=== PATIENT | female | born 1955 | race Caucasian/White ===

== ENCOUNTER 2017-11-20 16:21 | Emergency (ER) | payer BC ==
[2017-11-20 19:03] VITALS: BP 169/79
--- NOTE | 2017-11-29 19:39 | ED ---
Pino Wick Stephanie, scribed for Morales Dubon MD on 11/20/17 at 1932 . Dizziness - HPI Summary HPI Summary: The pt is a 62 y/o F presenting to the ED with c/o dizziness that began on . Symptoms include vomiting. The pt states that changes in position do not alter the intensity of the dizziness. - History Of Current Complaint Chief Complaint: EDDizziness Stated Complaint: DIZZINESS, NAUSEA Time Seen by Provider: 11/20/17 19:23 Hx Obtained From: Patient Onset/Duration: Still Present, Suddenly Timing: Intermittent Episode Lasting Severity Currently: Mild Character: Dizzy Aggravating Factor(s): Nothing Alleviating Factor(s): Nothing Associated Signs And Symptoms: Positive: Nausea, Vomiting. Negative: Change In Medication - Allergies/Home Medications Allergies/Adverse Reactions: Allergies Allergy/AdvReac Type Severity Reaction Status Date / Time MS Peanut-containing Drug Allergy Severe Swelling Verified 03/02/15 16:48 Products of face, [Peanut-containing Drug lips, and Products] throat MS Peanut-derived Allergy Severe Swelling Verified 03/02/15 16:48 [Peanut-derived] of face, lips, and throat MS Shellfish Allergy Allergy Intermediate Unknown Verified 03/02/15 16:48 [Shellfish Allergy] Reaction Details MS Amoxicillin Allergy Unknown Nausea And Verified 03/02/15 16:48 [From Augmentin] Vomiting MS Clavulanic Acid Allergy Unknown Nausea And Verified 03/02/15 16:48 [From Augmentin] Vomiting MS Moxifloxacin [From Avelox] AdvReac Severe Nausea And Verified 03/02/15 16:48 Vomiting MS Sulfa Drugs [Sulfa Drugs] AdvReac Severe Hives Verified 03/02/15 16:48 peanuts Allergy Severe Swelling Uncoded 11/18/14 10:29 Of Face,Lips,& Throat nuts Allergy Intermediate Swelling Uncoded 11/18/14 10:29 Of Face,Lips,& Throat PMH/Surg Hx/FS Hx/Imm Hx Endocrine/Hematology History: Reports: Hx Anticoagulant Therapy - plavix history , not currently taking, Hx Diabetes Denies: Hx Thyroid Disease Cardiovascular History: Reports: Hx Angina, Hx Coronary Artery Disease, Hx Hypercholesterolemia, Hx Hypertension, Hx Myocardial Infarction, Other Cardiovascular Problems/Disorders - congenital defect of LAD Denies: Hx Pacemaker/ICD, Hx Valvular Heart Disease Respiratory History: Reports: Hx Asthma, Hx Sleep Apnea - current CPAP user, Other Respiratory Problems/Disorders - chronic rhinitis Denies: Hx Chronic Obstructive Pulmonary Disease (COPD) GI History: Reports: Hx Gastroesophageal Reflux Disease, Other GI Disorders - diverticulitis Denies: Hx Ulcer History: Denies: Hx Renal Disease Musculoskeletal History: Reports: Hx Arthritis - bilateral knees Sensory History: Reports: Hx Contacts or Glasses Opthamlomology History: Reports: Hx Contacts or Glasses Neurological History: Reports: Hx Headaches - sinus headaches, Hx Migraine Denies: Hx Dementia, Hx Seizures Psychiatric History: Reports: Other Psychiatric Issues/Disorders - OCD Denies: Hx Substance Abuse - Cancer History Cancer Type, Location and Year: Skin CA on back removed. Hx Chemotherapy: No Hx Radiation Therapy: No - Surgical History Surgery Procedure, Year, and Place: 04/2000 (left) carpal tunnel. 02/2001 ( right) carpal tunnel. 12/2002 hysterectomy fibroid tumor. Stent placement x 4 and angioplasty. 5 sinus surgeries Hx Anesthesia Reactions: No - Immunization History Date of Tetanus Vaccine: 2002 Date of Influenza Vaccine: 07/29 Infectious Disease History: No Infectious Disease History: Reports: Hx of Known/Suspected MRSA Denies: Hx Clostridium Difficile, Hx Hepatitis, Hx Human Immunodeficiency Virus (HIV), Hx Shingles, Hx Tuberculosis, Traveled Outside the [place] in Last 30 Days - Family History Known Family History: Positive: Diabetes - Social History Occupation: Employed Full-time Lives: With Family Alcohol Use: Occasionally Substance Use Type: Reports: None, Prescribed Smoking Status (MU): Never Smoked Tobacco Review of Systems Negative: Fever Positive: Vomiting Neurological: Other - dizziness All Other Systems Reviewed And Are Negative: Yes Physical Exam - Summary Physical Exam Summary: Appearance: Well-appearing, Well-nourished Skin: Warm, Dry, No rash Eyes: Normal, PERRL, EOMI, sclera anicteric ENT: cerumen in R ear. L ear clean and L TM nml. Positional vertigo on Katja Halpike maneuvers with latency and extinction on bilateral ears. Neck: Supple, nontender Respiratory: Clear to auscultation Cardiovascular: S1, S2, no murmur, no rub, no gallop Abdomen: Soft, nontender, no organomegaly Bowel sounds: Present Musculoskeletal: Normal, Strength/ROM Intact, no edema, pulses symmetrical Neurological: Normal, A&Ox3, cranial nerves II-XII WNL, follows commands, gait not tested, sensation intact to pin and light touch Psychiatric: affect normal, behavior appropriate, dressed appropriately, judgment intact Triage Information Reviewed: Yes Vital Signs On Initial Exam: Initial Vitals Temp Pulse Resp BP Pulse Ox 97.8 F 65 18 144/82 98 11/20/17 16:28 11/20/17 16:28 11/20/17 16:28 11/20/17 16:28 11/20/17 16:28 Vital Signs Reviewed: Yes Diagnostics - Vital Signs Vital Signs Temp Pulse Resp BP Pulse Ox 11/20/17 19:02 97.8 F 75 18 169/79 98 11/20/17 16:28 97.8 F 65 18 144/82 98 - Laboratory Lab Statement: Any lab studies that have been ordered have been reviewed, and results considered in the medical decision making process. Dizzy Course/Dx - Course Course Of Treatment: ED physician removed earwax from the pt's ears via irrigation. - Diagnoses Provider Diagnoses: Positional vertigo Discharge - Discharge Plan Condition: Stable Disposition: HOME Referrals: Linette Garcia MD [Primary Care Provider] - Additional Instructions: RETURN TO THE EMERGENCY DEPARTMENT FOR CHANGING OR WORSENING SYMPTOMS The documentation as recorded by the Pino segovia Stephanie accurately reflects the service I personally performed and the decisions made by me, Morales Dubon MD.
== END 2017-11-20 20:14 | disposition home or self-care (01) ==
LOC: ED 16:21
DX: H81.10 Benign paroxysmal vertigo, unspecified ear (principal); R11.2 Nausea with vomiting, unspecified; I25.119 Atherosclerotic heart disease of native coronary artery with unspecified angina pectoris; I25.2 Old myocardial infarction; I10 Essential (primary) hypertension; Z79.01 Long term (current) use of anticoagulants; E78.00 Pure hypercholesterolemia, unspecified; J45.909 Unspecified asthma, uncomplicated; K21.9 Gastro-esophageal reflux disease without esophagitis; Z88.2 Allergy status to sulfonamides; Z88.1 Allergy status to other antibiotic agents; Z91.018 Allergy to other foods; Z91.010 Allergy to peanuts; Z91.013 Allergy to seafood
CPT/HCPCS: 99282

== ENCOUNTER 2018-09-24 11:45 | Emergency (ER) | payer BC ==
[2018-09-24 12:06] VITALS: BP 139/70
[2018-09-24] MEDS ORDERED: Lidocaine 2% PF * 5 ML VIAL INJ ONE (13:01)
--- NOTE | 2018-09-24 13:02 | UC ---
Laceration HPI - HPI Summary HPI Summary: 63 yo female presents with laceration to left middle finger. 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 She bandaged the area and came to - History Of Current Complaint Chief Complaint: UCLaceration Stated Complaint: FINGER LAC Time Seen by Provider: 09/24/18 12:33 Hx Obtained From: Patient Laceration Location: Finger Mechanism Of Injury: Sharp Trauma Severity: Mild Pain Intensity: 2 Pain Scale Used: 0-10 Numeric - Allergies/Home Medications Allergies/Adverse Reactions: Allergies Allergy/AdvReac Type Severity Reaction Status Date / Time amoxicillin [From Augmentin] Allergy Nausea And Verified 09/24/18 12:07 Vomiting clavulanic acid Allergy Nausea And Verified 09/24/18 12:07 [From Augmentin] Vomiting moxifloxacin [From Avelox] Allergy Nausea And Verified 09/24/18 12:07 Vomiting shellfish derived Allergy Unknown Verified 09/24/18 12:07 Reaction Details Sulfa (Sulfonamide Allergy Hives Verified 09/24/18 12:07 Antibiotics) peanuts Allergy Severe Swelling Uncoded 11/18/14 10:29 Of Face,Lips,& Throat nuts Allergy Intermediate Swelling Uncoded 11/18/14 10:29 Of Face,Lips,& Throat PMH/Surg Hx/FS Hx/Imm Hx Endocrine History: Diabetes, Dyslipidemia Cardiovascular History: Hypertension Respiratory History: Asthma Other History Of: Anticoagulant Therapy - plavix history, not currently taking - Surgical History Surgical History: Yes Surgery Procedure, Year, and Place: 04/2000 (left) carpal tunnel. 02/2001 ( right) carpal tunnel. 12/2002 hysterectomy fibroid tumor. Stent placement x 4 and angioplasty. 5 sinus surgeries - Family History Known Family History: Positive: Diabetes - Social History Occupation: Employed Full-time Lives: With Family Alcohol Use: Occasionally Substance Use Type: None Smoking Status (MU): Never Smoked Tobacco - Immunization History Most Recent Tetanus Shot: within 10 years Review of Systems All Other Systems Reviewed And Are Negative: Yes Constitutional: Positive: Negative Skin: Positive: Other - Laceration left middle finger Respiratory: Positive: Negative Cardiovascular: Positive: Negative Neurovascular: Positive: Negative Neurological: Positive: Negative Psychological: Positive: Negative Physical Exam - Summary Physical Exam Summary: GENERAL: NAD. WDWN. No pain distress. SKIN: V shaped laceration at dorsal-radial aspect of left middle finger near the DIP. No tendon involvement. NECK: Supple. Nontender. No lymphadenopathy. CHEST: No accessory muscle use. Breathing comfortably and in no distress. CV: Pulses intact. Cap refill <2seconds MSK: Left middle finger: FROM at MCP, PIP, and DIP NEURO: Alert. PSYCH: Age appropriate behavior. Triage Information Reviewed: Yes Vital Signs: Initial Vital Signs Temp 97.5 F 09/24/18 11:59 Pulse 67 09/24/18 11:59 Resp 18 09/24/18 11:59 BP 139/70 09/24/18 11:59 Pulse Ox 100 09/24/18 11:59 Vital Signs Reviewed: Yes Laceration Repair - Laceration Repair 1 Description: Stellate Laceration Size After Repair: Length (cm) - 2.0 Modified For Repair: No Type Injection: Local Anesthesia Used: 2.0% Lido Irrigation With Pressure Irrigation Device: Yes Closure Material: Sutures - #5 Closure Method: Single Layer Suture Type: Prolene Laceration Course/Dx - Course/Dx Course Of Treatment: The procedure was explained to the pt and all questions were answered. A time out was performed, witnessed, and signed. The area was irrigated with 250mL sterile saline. 2mL of 2% lidocaine without epi was administered and good anesthetization was achieved. In the usual sterile fashion , FIVE prolene interrupted sutures were placed. The wound was bandaged with telfa and tubegauze. Pt tolerated procedure well. - Diagnosis Provider Diagnosis: Laceration of left middle finger Discharge - Sign-Out/Discharge Documenting (check all that apply): Patient Departure All imaging exams completed and their final reports reviewed: No Studies - Discharge Plan Condition: Stable Disposition: HOME Patient Education Materials: Care For Your Stitches (ED), Laceration (DC) Referrals: Linette Garcia MD [Primary Care Provider] - Additional Instructions: 1) Please keep the area bandaged, clean, dry, and intact for the next 24- 48hours. 2) If you develop a fever, colored or thick discharge, increased pain or swelling - please call your PCP or go to the ED. 3) Please return in 10-12 days to have your FIVE sutures removed. - Billing Disposition and Condition Condition: STABLE Disposition: Home
== END 2018-09-24 13:40 | disposition home or self-care (01) ==
LOC: UCEAST 11:45
DX: S61.213A Laceration without foreign body of left middle finger without damage to nail, initial encounter (principal); J45.909 Unspecified asthma, uncomplicated; E11.9 Type 2 diabetes mellitus without complications; I10 Essential (primary) hypertension; Z88.0 Allergy status to penicillin; Z88.1 Allergy status to other antibiotic agents; Z88.2 Allergy status to sulfonamides; Z91.018 Allergy to other foods; Z91.010 Allergy to peanuts; Z95.5 Presence of coronary angioplasty implant and graft; W45.8XXA Other foreign body or object entering through skin, initial encounter; Y92.9 Unspecified place or not applicable
CPT/HCPCS: 12001; 99212; G0463

== ENCOUNTER 2018-12-25 08:49 | Inpatient (IN) | payer BC ==
--- NOTE | 2018-12-25 10:03 | ED ---
HPI Chest Pain - HPI Summary HPI Summary: 63 year old female presents for evaluation of chest pain. Pt states pain first started last night while she was in bed and describes it as "heavy pressure". She states the pain was a 9/10 and it radiated to the left side of her neck and back. Pt also reports vomiting, diarrhea, diaphoresis, and fatigue with onset of her symptoms. She took 2 nitroglycerin tabs which improved her pain. Pt currently reports no chest pain and any of the symptoms she experienced last night other than fatigue. She denies SOB, palpitations, and fever. Pt has a personal history of 2 MIs occurred about 10 years. She states they were both in the same year. She also states that the pain she was feeling last night was similar to the pain she experienced during her first DE. Pt has occasional episodes of angina which she takes nitroglycerin for. She sees a peel oven tender, Dr. King, he regularly and her last follow up was 4-5 weeks ago. Pt also has a history of diabetes and hypertension. She is a non-smoker. - History of Current Complaint Chief Complaint: EDChestPainROMI Time Seen by Provider: 12/25/18 08:58 Hx Obtained From: Patient Timing: Intermittent, Lasting Minutes Initial Severity: Worse Since: Pain Intensity: 0 Pain Scale Used: 0-10 Numeric Chest Pain Location: Mid Sternal Chest Pain Radiates: Yes Chest Pain Radiates To:: Back, Neck Character: Dull/Aching Aggravating Factor(s): Nothing Alleviating Factor(s): NTG 123 - nitro x 2 Associated Signs and Symptoms: Positive: Chest Pain, Weakness, Diaphoresis, Nausea, Vomiting Related History: Similar Episode/Dx as: - previous DE x 2 - Risk Factors TAD Risk Factors: Hypertension AMI/ACS Risk Factors: Myocardial Infarction, Obesity, Nitroglycerine Use, Hypertension - Well - Additional Pertinent History Recent Stress Test: No - unknown 5+ years ago - Allergy/Home Medications Allergies/Adverse Reactions: Allergies Allergy/AdvReac Type Severity Reaction Status Date / Time amoxicillin [From Augmentin] Allergy Nausea And Verified 12/25/18 08:58 Vomiting clavulanic acid Allergy Nausea And Verified 12/25/18 08:58 [From Augmentin] Vomiting moxifloxacin [From Avelox] Allergy Nausea And Verified 12/25/18 08:58 Vomiting shellfish derived Allergy Unknown Verified 12/25/18 08:58 Reaction Details Sulfa (Sulfonamide Allergy Hives Verified 12/25/18 08:58 Antibiotics) peanuts Allergy Severe Swelling Uncoded 12/25/18 08:58 Of Face,Lips,& Throat nuts Allergy Intermediate Swelling Uncoded 12/25/18 08:58 Of Face,Lips,& Throat Home Medications: Home Medications Dulaglutide (NF) [Trulicity (NF)] 0.75 mg SUBCUT WEEKLY 12/25/18 [History Confirmed 12/25/18] FLUoxetine CAP* [PROzac CAP*] 20 mg PO DAILY 12/25/18 [History Confirmed ] PMH/Surg Hx/FS Hx/Imm Hx Previously Healthy: Yes - previous DE hx Endocrine/Hematology History: Reports: Hx Anticoagulant Therapy - plavix history , not currently taking, Hx Diabetes Denies: Hx Thyroid Disease Cardiovascular History: Reports: Hx Angina, Hx Coronary Artery Disease, Hx Hypercholesterolemia, Hx Hypertension, Hx Myocardial Infarction, Other Cardiovascular Problems/Disorders - congenital defect of LAD Denies: Hx Pacemaker/ICD, Hx Valvular Heart Disease Respiratory History: Reports: Hx Asthma, Hx Sleep Apnea - current CPAP user, Other Respiratory Problems/Disorders - chronic rhinitis Denies: Hx Chronic Obstructive Pulmonary Disease (COPD) GI History: Reports: Hx Gastroesophageal Reflux Disease, Other GI Disorders - diverticulitis Denies: Hx Ulcer History: Denies: Hx Renal Disease Musculoskeletal History: Reports: Hx Arthritis - bilateral knees Sensory History: Reports: Hx Contacts or Glasses Opthamlomology History: Reports: Hx Contacts or Glasses Neurological History: Reports: Hx Headaches - sinus headaches, Hx Migraine Denies: Hx Dementia, Hx Seizures Psychiatric History: Reports: Other Psychiatric Issues/Disorders - OCD Denies: Hx Substance Abuse - Cancer History Cancer Type, Location and Year: Skin CA on back removed. Hx Chemotherapy: No Hx Radiation Therapy: No - Surgical History Surgery Procedure, Year, and Place: 04/2000 (left) carpal tunnel. 02/2001 ( right) carpal tunnel. 12/2002 hysterectomy fibroid tumor. Stent placement x 4 and angioplasty. 5 sinus surgeries Hx Anesthesia Reactions: No - Immunization History Date of Tetanus Vaccine: 2002 Date of Influenza Vaccine: 07/29 Immunizations Up to Date: Yes Infectious Disease History: No Infectious Disease History: Reports: Hx of Known/Suspected MRSA - in her sinuses Denies: Hx Clostridium Difficile, Hx Hepatitis, Hx Human Immunodeficiency Virus (HIV), Hx Shingles, Hx Tuberculosis, Traveled Outside the [place] in Last 30 Days - Family History Known Family History: Positive: Diabetes - Social History Occupation: Employed Full-time Lives: With Family Alcohol Use: Occasionally Hx Substance Use: No Substance Use Type: Reports: None Hx Tobacco Use: No Smoking Status (MU): Never Smoked Tobacco Review of Systems Positive: Fatigue, Skin Diaphoresis. Negative: Fever Negative: Blurred Vision, Diplopia Positive: Chest Pain Negative: Shortness Of Breath, Cough Positive: Vomiting, Diarrhea. Negative: Abdominal Pain, Nausea Positive: Weakness. Negative: Paresthesia, Numbness, Syncope, Slurred Speech All Other Systems Reviewed And Are Negative: Yes Physical Exam Triage Information Reviewed: Yes Vital Signs On Initial Exam: Initial Vitals Temp Pulse Resp BP Pulse Ox 98 F 92 20 149/60 98 12/25/18 08:54 12/25/18 08:54 12/25/18 08:54 12/25/18 08:54 12/25/18 08:54 Vital Signs Reviewed: Yes Appearance: Positive: Well-Appearing, No Pain Distress, Well-Nourished Skin: Positive: Warm Head/Face: Positive: Normal Head/Face Inspection Eyes: Positive: EOMI, Conjunctiva Clear ENT: Positive: Normal ENT inspection Neck: Positive: Supple, Nontender Respiratory/Lung Sounds: Positive: Clear to Auscultation, Breath Sounds Present Cardiovascular: Positive: RRR, Pulses are Symmetrical in both Upper and Lower Extremities Abdomen Description: Positive: Nontender, Soft Musculoskeletal: Positive: Normal, Strength/ROM Intact Neurological: Positive: Sensory/Motor Intact, Alert, Oriented to Person Place, Time Diagnostics - Vital Signs Vital Signs Temp Pulse Resp BP Pulse Ox 12/25/18 09:27 82 18 136/73 98 12/25/18 09:00 88 23 98 12/25/18 08:57 85 15 149/60 96 12/25/18 08:54 98 F 89 20 149/60 98 - Laboratory Result Diagrams: 12/25/18 10:30 12/25/18 10:30 Lab Statement: Any lab studies that have been ordered have been reviewed, and results considered in the medical decision making process. Chest Pain Course/Dx - Course Course Of Treatment: During the course of treatment, the patient is evaluated for midsternal chest pressure radiating up into the left side of the neck, left arm and through to the back. History of DE 2, 10 years ago. Four Stent placements including LAD. Pain began at 3 AM including diaphoresis, nausea, vomiting, diarrhea. Symptoms have except for continuing fatigue. She states this is similar to her episodes of DE 10 years ago. She is currently asymptomatic. She is not given medications on arrival and vital signs are stable. Temp 98, pulse 92, respirations at 20, O2 sat 98% on room air and 149/ 60. Labs obtained, EKG obtained which was normal sinus rhythm. Chest x-ray obtained which shows no acute cardiopulmonary findings. Discussed case with hospitalist, Dr. Foote who agrees to accept patient for admission. JOSE MIGUEL score 3. Troponin 0.57. - Chest Pain Differential Diagnosis/HQI/PQRI: Acute DE, ACS, Angina, Chest Wall, Other: - viral syndrome, gastroenteritis - Diagnoses Provider Diagnoses: Angina at rest - Provider Notifications Discussed Care Of Patient With: Autumn Foote Instructed by Provider To: Admit As Inpatient - Critical Care Time Critical Care Time: 30-74 min Discharge - Sign-Out/Discharge Documenting (check all that apply): Patient Departure Patient Received Moderate/Deep Sedation with Procedure: No - Discharge Plan Condition: Fair Disposition: ADMITTED TO [facility] Referrals: Linette Garcia MD [Primary Care Provider] - - Billing Disposition and Condition Condition: FAIR Disposition: Admitted to [facility]
[2018-12-25 10:41] LABS: ABS Basophils 0 10^3/ul (0-0.2); ABS Eosinophils 0.1 10^3/ul (0-0.6); ABS Lymphocytes 0.9 10^3/ul (1.0-4.8); ABS Monocytes 0.7 10^3/ul (0-0.8); ABS Neutrophils 7.4 10^3/ul (1.5-7.7); ABS Nucleated RBC 0 10^3/ul; Eosinophil % 0.9 %; Hematocrit 40 % (33-41); Hemoglobin 13.5 g/dL (12.0-16.0); Lymphocyte % 9.5 %; Mean Corpuscular HGB Conc 34 g/dL (31-36); Mean Corpuscular Hemoglobin 32 pg (27-31); Mean Corpuscular Volume 93 fL (80-97); Mean Platelet Volume 8.6 fL (7.4-10.4); Nucleated Red Blood Cells % 0; Platelet Count 208 10^3/uL (150-450); Red Blood Count 4.28 10^6 /uL (3.70-4.87); Red Cell Distribution Width 13 % (10.5-15); White Blood Count 9.1 10^3/uL (3.5-10.8)
[2018-12-25 10:59] LABS: Influenza A Molecular NEGATIVE (Negative); Influenza B Molecular NEGATIVE (Negative)
[2018-12-25 11:03] LABS: ALT 19 U/L (7-52); AST 19 U/L (13-39); Albumin/Globulin Ratio 1.3 (1-3); Alkaline Phosphatase 66 U/L (34-104); Anion Gap 8 mmol/L (2-11); BUN/Creatinine Ratio 28.6 (8-20); Blood Urea Nitrogen 36 mg/dL (6-24); C Reactive Protein 48.62 mg/L (<8.01); CO2 Carbon Dioxide 23 mmol/L (22-32); Calcium 9.3 mg/dL (8.6-10.3); Chloride 104 mmol/L (101-111); EGFR African American 51.7 (>60); EGFR Non-African American 42.8 (>60); Glucose 147 mg/dL (70-100); Sodium 135 mmol/L (135-145)
[2018-12-25 11:09] LABS: Troponin I 0.57 ng/mL (<0.04)
[2018-12-25] MEDS ORDERED: Aspirin TAB* 325 MG PO ONE (11:18)
[2018-12-25] MEDS ORDERED: Aspirin 81 mg CHEW TAB* 81 MG TAB.CHEW ONE (11:21)
[2018-12-25] MEDS ORDERED: Aspirin 81 mg CHEW TAB* 81 MG TAB.CHEW PO ONE (11:22)
[2018-12-25] MEDS ORDERED: Acetaminophen TAB* 325 MG PO PRN (11:48)
[2018-12-25] MEDS ORDERED: Al Hydrox/Mg Hydrox/Simet LIQ* 30 ML UDC PO PRN (11:48)
[2018-12-25] MEDS: NS 0.9% 1000 ML** 2,000 ML IV ONE (12:03)
[2018-12-25] MEDS ORDERED: Nitroglycerin TAB 0.4 MG* 0.4 MG TAB SL PRN (12:05)
[2018-12-25] MEDS ORDERED: Albuterol 2.5 MG/3 ML NEB.SOL* (0.083%) INH PRN (12:05)
[2018-12-25] MEDS ORDERED: Levalbuterol HFA INHALER* 1 PUFF MDI INH PRN (12:05)
[2018-12-25] MEDS ORDERED: Dextrose 50% Syringe 50 ML* 25 GM/50 ML SYRINGE IV PUSH PRN (12:08)
[2018-12-25] MEDS ORDERED: Heparin DRIP 25,000 UNITS(*) 25,000 UNITS/500 ML BAG IV SCH (13:00)
--- NOTE | 2018-12-25 13:05 | HP ---
CC: Dr. Garcia; Dr. King; Dr. Gaines* HISTORY AND PHYSICAL: ADDENDUM: DATE OF ADMISSION: 12/25/18. PRIMARY CARE PROVIDER: Dr. Garcia. DIRECTOR OF SALES MARKETING: Dr. King. CONSULTING DIRECTOR OF SALES MARKETING: Dr. Gaines. The case was reviewed and discussed with TEJAS Jean-Baptiste. Mrs. 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 The patient states that around 3:00 in the morning, she woke up with severe retrosternal chest pain, described as a pressure radiating to the left side of her neck and back. This was associated with nausea, vomiting, diarrhea, diaphoresis, and weakness. She took 2 nitroglycerin tablets with improvement of the pain and she was actually able to go back to sleep and she came to the emergency room around 9 a.m. DIAGNOSTIC STUDIES/LAB DATA: Her labs were reviewed and her initial troponin is 0.57. Her EKG showed sinus rhythm with no acute ischemic changes. Her chest x-ray is not yet officially read, but on my preliminary review, I do not see any acute cardiopulmonary disease. IMPRESSION: The patient has a known ST elevation ME. She will be admitted to the telemetry floor. She will be treated with aspirin, heparin drip. She will be continued on her beta-cira and her statin. We will trend her troponin until peak and we will wait for the seasoning sprayer evaluation regarding further management and risk stratification. As per Dr. King's last note, the patient's last catheterization was in 2010 and at that time, she had a normal LAD with stents that were patent. She had 90 % ostial, 30% mid circumflex and the RCA stent was also patent. We will check lipid profile, hemoglobin A1c, and await further Cardiology recommendations. [id number] #: [id number] MTDD
[2018-12-25 13:33] LABS: Troponin I 0.81 ng/mL (<0.04)
[2018-12-25] MEDS ORDERED: Clopidogrel TAB* 300 MG PO ONE (14:07)
--- NOTE | 2018-12-25 14:10 | PN ---
Hospitalist Progress Note Date of Service: 12/25/18 HOSPITALIST ADDENDUM D/w Cardiology (Dr Gaines) - will load with Plavix 300mg now and continue 75mg/ daily. Also recommended changing beta cira from carverdilol to metoprolol tartrate with first dose now.
[2018-12-25] MEDS: Insulin LISPRO* 1 UNITS UNIT SUBCUT SCH ×2 (14:15→21:20)
[2018-12-25] MEDS: Heparin VIAL(*) 5000 UNITS/ML VIAL (FIVE THOUSAND) IV PRN ×2 (14:15→21:42)
--- NOTE | 2018-12-25 14:37 | HP ---
CC: Dr. Agata Garcia; Dr. Adi King* HISTORY AND PHYSICAL: DATE OF ADMISSION: 12/25/18 PROVIDER: TEJAS Jean-Baptiste. PRIMARY CARE PROVIDER: Dr. Agata Garcia. PRESS SETUP OPERATOR: Dr. Adi King. ATTENDING PHYSICIAN: Dr. Saul Galan* (dictated by TEJAS Jean-Baptiste) CHIEF COMPLAINT: Chest pain, overnight. HISTORY OF PRESENT ILLNESS: Carissa Aquino is a 63-year-old white female with past medical history of CAD, status post 2 stents; DM type 2; asthma and obesity , who presents to the emergency room today after experiencing chest pain overnight that did not resolve by this morning at 6 AM. Yesterday evening, the patient began experiencing sudden nausea at bedtime, approximately around 9 p.m. , this led to vomiting multiple times and diarrhea. During this, she started to develop chest pain which she noticed was radiating to her left shoulder and her neck. Additionally, the pain was radiating to her back. During this episode , she was frequently alternating between diaphoresis and chills. She mentions she did have [employer] for dinner and this does frequently cause her to have loose stools. She decided to take nitroglycerin and was waiting to see if the chest pain would go away. It did start to improve but then she fell sleep. She then woke up at 6:30 this morning and her chest pain was still not resolved , so she decided to report to the emergency department today by a private vehicle. She is chest pain free at time of evaluation today. She denies visual changes, headaches, dizziness, and shortness of breath now and during her episode of chest pain. She was not having abdominal pain leading up to this, but she was experiencing abdominal pain shortly after vomiting and diarrhea. She denies abdominal pain at time of evaluation. She does not believe there was blood in her vomit or stool. 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 She follows with Dr. King and had her last appointment in that office on . It is of note that she mentions today that she does approximately once per month or less have chest pain at rest that is relieved with nitroglycerin within 10 to 15 minutes. Additionally, the patient's notes that the patient frequently has leg cramps. The patient reports that these leg cramps occur at rest and immediately get better with movement. ED COURSE: The patient arrived via private vehicle to the emergency department where her vital signs were temperature of 98 degrees Fahrenheit, heart rate 92, respiratory rate 20, O2 sat 98% on room air, blood pressure 149/60. Of note, troponin was elevated to 0.57 and therefore, the hospitalist were asked to evaluate the patient for admission. PAST MEDICAL HISTORY: 1. CAD, status post 2 stents. 2. Diabetes mellitus type 2. 3. Obstructive sleep apnea, uses CPAP at home. 4. Asthma. 5. Osteoarthritis. 6. Seasonal allergic rhinitis. 7. Obesity. PAST SURGICAL HISTORY: 1. The patient reports multiple sinus surgeries at least 15 years ago. 2. Two C-sections. 3. Hysterectomy. HOME MEDICATIONS: 1. Metformin 1000 mg p.o. b.i.d. 2. Lisinopril 5 mg p.o. daily. 3. Trulicity 0.5 mg subcu weekly. 4. Advair 1 inhalation b.i.d. 5. Prozac 20 mg p.o. daily. 6. Carvedilol 6.25 mg p.o. b.i.d. 7. Budesonide nasal spray 32 mcg spray both nares b.i.d. 8. Albuterol nebulizer p.r.n. wheezing. 9. Singulair 10 mg p.o. daily. 10. Levalbuterol inhaler 2 inhaled puffs p.r.n. wheezing. 11. Aspirin 81 mg daily. 12. Simvastatin 80 mg p.o. daily. 13. Pantoprazole 40 mg p.o. daily. 14. Nitroglycerin 0.4 mg sublingually p.r.n. chest pain. ALLERGIES: The patient reports reaction of nausea and vomiting to AMOXICILLIN and MOXIFLOXACIN. The patient reports hives to SULFA. The patient reports swelling of face, lips, and throat to peanuts and other nuts. FAMILY HISTORY: Her father at age 65 of an LA. He had liver disease related to alcohol abuse. Mother at age 61 of complications of pancreatitis. She also had cirrhosis due to alcohol abuse. Denies family history of stroke. 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 She is and has 2 children. Her , Ivan, will be her surrogate medical decision maker should she need one. His phone number is [phone]. The patient denies tobacco use and former tobacco use. The patient drinks approximately 1 drink per week or less. Denies drug use. REVIEW OF SYSTEMS: The patient denied shortness of breath, dizziness, headaches or visual changes. An 11-point review of systems was completed and all pertinent positives and negatives are in the HPI. All other systems are negative. PHYSICAL EXAMINATION GENERAL: Obese white female appears stated age, lying in hospital stretcher comfortably, appearing in no acute distress. at bedside. HEENT: Head: Normocephalic, atraumatic. Eyes: PERRLA, EOMI. Sclerae anicteric. ENT: Mucous membranes moist. NECK: Supple without JVP. RESPIRATORY: Lungs are clear to auscultation. Chest expansion symmetrical. CARDIO: Regular rate and rhythm without murmurs, rubs, or gallops. Dorsalis pedis pulses 3/4 bilaterally. ABDOMEN: Obese, soft, and nondistended. There is tenderness to deep palpation in the right upper quadrant. No masses or hepatosplenomegaly. Normoactive bowel sounds x4 quadrants. EXTREMITIES: No clubbing, edema, or calf tenderness. Hair distribution throughout lower extremities within normal limits. NEURO: The patient is alert and oriented x3. Cranial nerves II through XII are grossly intact. No tremors noted. PSYCH: Mood and affect are euthymic. SKIN: Warm, dry and intact. DIAGNOSTIC STUDIES/LAB DATA: EKG on 12/25/18, approximately [address] elevation in aVF, otherwise no ST elevations or ST depressions. There are some T wave flattening in lead III compared to the EKG on 03/27/15. Normal sinus rhythm. Rate is 83 beats per minute. Normal axis. Chest x-ray on 12/25/18. Impression: "stigmata of obstructive lung disease. No acute pulmonary or coronary process evident." White blood cells count 9.1, red blood cell count 4.28, hemoglobin 13.5, hematocrit 40, platelet count 208. Sodium 135, potassium 5.0, chloride 104, carbon dioxide 23, BUN 36, creatinine 1.26, glucose 147. Troponin 0.57. Lactic acid 1.8. Influenza A and B negative. ASSESSMENT AND PLAN: Carissa Aquino is 63-year-old white female with past medical history significant for coronary artery disease, status post 2 stents; diabetes mellitus type 2 and asthma, who presented to emergency room with chest pain which did not improve overnight. The patient will be admitted inpatient for: 1. Jyk-EH-qrhgoucvd myocardial infarction. The patient has a troponin elevated to 0.57. Her chest pain is currently resolved, though it appears that her chest pain lasted approximately 8 hours overnight and didn't resolve with nitroglycerin. Her EKG at the time of admission does not have ST elevations in leads consistent with coronary arteries and is overall similar to her prior EKG in 2015. The patient has been given 325 mg of aspirin in the emergency department and we will continue her home statin daily, baby aspirin and lisinopril. Supervisor Graphite Dr. Gaines has been consulted. She suggests holding her home coreg and using metoprolol, and starting plavix. Plavix loading dose and heparin drip started. Dr. Gaines will likely take patient for cardiac catheterization tomorrow. The patient is currently n.p.o. in the possibility that Dr. Gaines take the patient to receive cardiac catheterization today, otherwise heart healthy diet will be ordered today. The patient does not have any contraindications to receiving heparin including history of gastrointestinal bleed, recent head trauma or stroke. The patient has a significant history of CAD and given her mentioning of leg cramps, it may be worthwhile to have an outpatient TAMAR to investigate possible PVD, although the pattern of the leg cramps are less consistent with claudication. It is also possible that the patient has frequent leg cramps due to dehydration. 2. Acute kidney injury. The patient's creatinine is 1.26 at admission and it appears her baseline is approximately 1.05. This is likely a prerenal acute kidney injury given that the patient did have fluid loss with diarrhea and multiple episodes of emesis last night. We will give the patient 2 L of normal saline and continue to monitor. Holding home metformin. 3. Abdominal pain. The patient does not complain of abdominal pain today but did experience it during her nausea and vomiting yesterday night. She does have tenderness to palpation in the right upper quadrant on exam. She is without complaints of fever/chills today. She doesn't have a fever, leukocytosis , or elevated LFTs. Continue to monitor and consider CT abdomen/pelvis if does not resolve. It is likely that her nausea/vomiting was related to her NSTEMI and diarrhea due to her fatty meal earlier in the evening, but a gastroenteritis may be possible. 4. Diabetes mellitus type 2. Hold the patient's Trulicity and metformin. Adding lispro sliding scale and a.c., q.h.s. fingersticks. 5. Asthma. Continue the patient's home levalbuterol, Singulair, Advair and p.r.n. albuterol inhalers. The patient without respiratory distress or wheezing at the time of admission. 6. Obstructive sleep apnea. The patient's family will bring in her home CPAP to use. 7. FEN. The patient is currently n.p.o. but will later be ordered heart- healthy diet. Electrolytes are within normal limits, 2 L normal saline ordered as described above. 8. Code status. Full code. 9. DVT prophylaxis. The patient has high DVT risk score. The patient will be placed on SCDs and no additional chemical prophylaxis is needed as the patient will be started on heparin drip. TIME SPENT: Approximately 45 minutes was spent on this admission, approximately half this time spent at bedside. Case has been reviewed by my attending, Dr. Saul Galan, and she agrees with my assessment and plan of care. TEJAS JEAN-BAPTISTE [id number]/[facility] #: [id number] ADDENDUM TO HISTORY AND PHYSICAL CC: Dr. Garcia; Dr. King; Dr. Gaines* DATE OF ADMISSION: 12/25/18. PRIMARY CARE PROVIDER: Dr. Garcia. PRESS SETUP OPERATOR: Dr. King. CONSULTING PRESS SETUP OPERATOR: Dr. Gaines. The case was reviewed and discussed with TEJAS Jean-Baptiste. Mrs. 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 The patient states that around 3:00 in the morning, she woke up with severe retrosternal chest pain, described as a pressure radiating to the left side of her neck and back. This was associated with nausea, vomiting, diarrhea, diaphoresis, and weakness. She took 2 nitroglycerin tablets with improvement of the pain and she was actually able to go back to sleep and she came to the emergency room around 9 a.m. DIAGNOSTIC STUDIES/LAB DATA: Her labs were reviewed and her initial troponin is 0.57. Her EKG showed sinus rhythm with no acute ischemic changes. Her chest x-ray is not yet officially read, but on my preliminary review, I do not see any acute cardiopulmonary disease. IMPRESSION: The patient has a non ST elevation LA. She will be admitted to the telemetry floor. She will be treated with aspirin, heparin drip. She will be continued on her beta-cira and her statin. We will trend her troponin until peak and we will wait for the transitions manager rn evaluation regarding further management and risk stratification. As per Dr. King's last note, the patient's last catheterization was in 2010 and at that time, she had a normal LAD with stents that were patent. She had 90 % ostial, 30% mid circumflex and the RCA stent was also patent. We will check lipid profile, hemoglobin A1c, and await further Cardiology recommendations. Autumn Galan MD [id number]/[facility] #: [id number] MTDD
[2018-12-25] MEDS: Metoprolol Tartrate TAB* 25 MG PO SCH ×2 (14:42→21:20)
[2018-12-25 16:25] LABS: Troponin I 1.29 ng/mL (<0.04)
[2018-12-25] MEDS ORDERED: Insulin LISPRO* 1 UNITS UNIT SUBCUT SCH (16:30)
[2018-12-25] MEDS: Mometasone/Formoter 200/5 MDI INH SCH (20:34)
[2018-12-25] MEDS ORDERED: Carvedilol TAB* 6.25 MG PO SCH (21:00)
[2018-12-25] MEDS ORDERED: metFORMIN* 500 MG TAB PO SCH (21:00)
[2018-12-25] MEDS: Atorvastatin* 40 MG TAB PO SCH (21:20)
[2018-12-25] MEDS: Fluticasone NASAL SPRAY 50MCG* 16 gm SPRAY BTL BOTH NARES SCH (21:21)
--- NOTE | 2018-12-25 22:17 | CONS ---
CC: Dr. Adi King; hospitalist service; Dr. Garcia * CONSULTATION REPORT: DATE OF CONSULT: 12/25/18 REASON FOR CONSULTATION: Non-Q wave myocardial infarction. CHIEF COMPLAINT: Chest, neck, arm discomfort; nausea and vomiting. HISTORY OF PRESENT ILLNESS: Mrs. Aquino is a 63-year-old woman followed by my partner Dr. King with known coronary disease, both congenital and atherosclerotic with a history of an anterior wall IL. She has 3 drug-eluting stents to the LAD and with a stent to the right coronary artery. She is on medical management for 30% occlusion of the left circumflex and 90% occlusion of the septal corner cutter machine operator. The patient states that she will sometimes get angina usually at night. She will wake up with it (has sleep apnea, uses CPAP), occasionally in the daytime, but she has had a stable pattern for a long time until 2 nights ago. The patient states that she was in her usual state of health, was working running around, decided to go to [employer] on 12/24/18. She and her were watching TV. She said when she laid down to go to bed she felt profoundly tired and then felt her stomach was off. She fell asleep and awoke feeling very nauseated, vomited profusely and then developed a chest discomfort radiating to the arms, neck, and jaw, all consistent with symptoms with prior IL. She estimated she had chest discomfort for about 3-1/2 hours. She did not go to the emergency room at that point. She was going to call her , but then was so tired, she fell back asleep. When she woke at 6, she had some awareness of chest discomfort and then presented to the emergency department. Troponins were mildly elevated, but the EKG unremarkable. The patient said she was very dehydrated. She thinks she is currently feeling extremely well, but thinks that is related to IV hydration. She is in fact very hungry and now wants to eat. The patient also did not want to be admitted. She really just wanted to check her troponins. The patient denies missing any medications, no recent travel or change in lifestyle other than going to [employer]. PAST MEDICAL HISTORY: 1. Coronary disease (in 2006, cardiac catheterization at [facility], occluded LAD to three 2.5 x 23 cypher stents, complex procedure, circumflex codominant 30% occlusion, OM branch 30% occlusion, right coronary artery codominant proximal 40% and RV branch with 90% occlusion. Cardiac catheterization in 2008 showed in-stent restenosis proximal LAD 90%, 80% stenosis [id number] right coronary artery and she underwent stenting to these lesions. Most recent cath was August 2011 showing an ejection fraction of 45% patent stents in the LAD, septal corner cutter machine operator ostial 90%, patent stents to the right coronary artery of congenital malformation of the LAD). 2. Asthma. 3. Reflux. 4. Diverticulitis. 5. Obstructive sleep apnea, on CPAP. 6. Diabetes. 7. Degenerative arthritis. 8. Basal cell carcinoma of the eyelid. 9. OCD/ADD, on Concerta. PAST SURGICAL HISTORY: Include: 1. Hysterectomy in 2002. 2. Carpal tunnel. 3. Breast biopsy. 4. Eye surgery. CURRENT INPATIENT MEDICATIONS: Include: 1. Tylenol. 2. Maalox. 3. Albuterol nebulizers. 4. Aspirin 81 mg a day. 5. Lipitor 40 mg a day. 6. Plavix 300 mg loaded and 75 mg a day. 7. Prozac 20 mg a day. 8. Flonase. 9. Heparin drip. 10. Lispro insulin. 11. Xopenex inhaler. 12. Prinivil 5 mg a day. 13. Lopressor 25 mg a day (replacing Coreg) 14. Dulera 200/5 MDI 1 puff b.i.d. 15. Singulair 10 mg a day. 16. Nitroglycerin p.r.n. 17. Protonix 40 mg a day. Medications stopped on admission include: 1. Coreg 6.25 mg b.i.d. 2. Glucophage 1000 mg b.i.d. ALLERGIES: Include PEANUTS, NUTS and SHELLFISH. SULFA, AMOXICILLIN, CLAVULANIC ACID, MOXIFLOXACIN. The patient denies ever having a dye allergy with her heart cath. FAMILY HISTORY: Significant for her father who at 66 with congestive heart failure with a history of stroke and alcoholism. Mother had a history of cirrhosis and alcoholism. SOCIAL HISTORY: The patient works in the [employer] in , , never smoked, occasional alcohol use. REVIEW OF SYSTEMS: See history of present illness for presentation with fatigue , nausea, vomiting and anginal symptoms. Negative for fevers, chills, sweats. Positive for diarrhea with nausea, which she relates to eating [employer]. Negative for missed medications. No orthopnea, no PND. No change in her anginal pattern until the acute episode. All other 14-point review of systems was negative. PHYSICAL EXAM: On exam, the patient is 5 feet 3 inches; weighs 215 pounds with a BMI of 38; blood pressure 126/53; pulse was 73, afebrile; oxygen saturation 99 %. General Appearance: Short, moderately overweight, somewhat older woman lying in bed, 30 degrees, appears comfortable, smiling in no acute distress. Psychologically, pleasant and cooperative. Neurologically, awake, alert, oriented to person, place and time. Cranial nerves II through XII intact. Sensory and motor function exam in the bed. Skin: Warm and dry. No cyanosis or rashes. HEENT: Pupils are equal and round. Mucous membranes moderately moist. Neck without increased JVP appreciated. Good carotid pulses without bruits. Breath sounds were clear with good effort. No wheezing, rales or rhonchi. Coronary: S1, S2 regular without murmurs or rubs. Abdomen: Active bowel sounds, soft, nontender. Radial pulses are strong and symmetrical. Lower extremities were free of edema and warmth. DIAGNOSTIC STUDIES/LAB DATA: A 12-lead ECG on arrival at 8:55 this morning shows normal sinus rhythm, 83 beats per minute, QRS axis +15, normal AV and IV conduction times and unremarkable ST segments and these are compared with her EKG of March 2015. No acute changes appreciated when compared with the last EKG in her outpatient chart of 11/20/18, the rate has increased from 65 beats a minute. A most recent echocardiogram, outpatient with October 2008 showing an ejection fraction of 55% with distal, apical, and septal hypokinesis, mild left ventricular hypertrophy, mildly decreased LV chamber diameter, mild mitral insufficiency, moderate tricuspid insufficiency and normal PA pressures. White count 9.1, hematocrit 40, platelets 208. PTT 29.3. Sodium 135, potassium 5.0, chloride 104, bicarb 23, BUN 36, creatinine 1.26 (both elevated from baseline), glucose 147. AST 19, ALT 19. Troponin #1 is 0.57, troponin #2 is 0.81, troponin #3 is 1.29. C-reactive protein elevated at just 49. Influenza A and B are negative. From 07/26/18, total cholesterol 149, triglycerides 140, HDL cholesterol 57 and LDL cholesterol 64. IMPRESSION AND PLAN: In summary, Carissa Aquino is a 63-year-old woman with known coronary artery disease for many years from multiple stents. She has a history of in-stent restenosis in the LAD and she now presents with acute onset of anginal symptoms at night with rest. The entire presentation could have been her angina and a non-Q wave myocardial infarction, but with her elevated C- reactive protein and diarrhea, it is also possible that she had some food poisoning from her eating out, but this is speculation. Mrs. Aquino has been not too worried because she is aware of her septal corner cutter machine operator and knew that some day she would have a myocardial infarction from that. I explained to her that it could be the septal corner cutter machine operator, but she is also risk for the major vessels becoming occluded and I reviewed data with her showing people with elevated troponins are at higher risk for future events. She is not only amenable, but interested in getting an updated heart catheterization to determine the cause of her non-Q wave myocardial infarction. Medical management that has been added today included addition of Plavix and fractionated heparin and converting Coreg to metoprolol to improve rate control. Mrs. Aquino has already had her Glucophage held and will discuss with Interventional Cardiology. She has been hydrated. It looks like her elevated BUN and creatinine were related to the nausea, vomiting, and diarrhea and she obtained 2 L of fluid. Additional recommendations will be made pending the results of her heart catheterization and we will check a urinalysis and get an updated C-reactive protein. She already has electrolytes reordered for the morning. Thank you for allowing me to assist in this nice woman's care. [id number]/[facility] #: [id number] BRAEDEN
[2018-12-25 23:11] LABS: Troponin I 0.85 ng/mL (<0.04)
[2018-12-26] MEDS: Insulin LISPRO* 1 UNITS UNIT SUBCUT SCH ×4 (03:45→21:20)
[2018-12-26 03:52] LABS: ABS Basophils 0 10^3/ul (0-0.2); ABS Eosinophils 0.2 10^3/ul (0-0.6); ABS Lymphocytes 2.2 10^3/ul (1.0-4.8); ABS Monocytes 0.5 10^3/ul (0-0.8); ABS Nucleated RBC 0 10^3/ul; Eosinophil % 3.7 %; Hematocrit 35 % (33-41); Hemoglobin 11.6 g/dL (12.0-16.0); Mean Corpuscular HGB Conc 33 g/dL (31-36); Mean Corpuscular Hemoglobin 31 pg (27-31); Mean Corpuscular Volume 94 fL (80-97); Mean Platelet Volume 8.7 fL (7.4-10.4); Nucleated Red Blood Cells % 0; Platelet Count 143 10^3/uL (150-450); Red Blood Count 3.74 10^6 /uL (3.70-4.87); Red Cell Distribution Width 13 % (10.5-15)
[2018-12-26 04:08] LABS: BUN/Creatinine Ratio 26.9 (8-20); C Reactive Protein 53.48 mg/L (<8.01); Calcium 8.6 mg/dL (8.6-10.3); EGFR African American 64.6 (>60); EGFR Non-African American 53.3 (>60); HDL Cholesterol 44.7 mg/dL
[2018-12-26] MEDS ORDERED: NS 0.9% 1000 ML** 1,000 ML IV SCH ×2 (06:30→12:30)
[2018-12-26] MEDS: Mometasone/Formoter 200/5 MDI INH SCH ×2 (07:52→20:38)
[2018-12-26] MEDS: Fluticasone NASAL SPRAY 50MCG* 16 gm SPRAY BTL BOTH NARES SCH (07:53)
[2018-12-26] MEDS: Lisinopril TAB* 5 MG PO SCH (07:53)
[2018-12-26] MEDS: Montelukast Sodium TAB* 10 MG PO SCH (07:54)
[2018-12-26] MEDS: Pantoprazole TAB * 40 MG TAB PO SCH (07:54)
[2018-12-26] MEDS: Metoprolol Tartrate TAB* 25 MG PO SCH ×2 (07:54→21:22)
[2018-12-26] MEDS: Aspirin 81 mg CHEW TAB* 81 MG TAB.CHEW PO SCH (07:54)
[2018-12-26] MEDS: FLUoxetine CAP* 20 MG PO SCH (07:54)
[2018-12-26] MEDS: Clopidogrel TAB* 75 MG PO SCH (07:54)
[2018-12-26 09:15] LABS: Urine Appearance Clear; Urine Bilirubin Negative (Negative); Urine Blood Negative (Negative); Urine Color Yellow; Urine Glucose Negative (Negative); Urine Ketones Negative (Negative); Urine Nitrite Negative (Negative); Urine Protein Negative (Negative); Urine Specific Gravity 1.005 (1.010-1.030); Urine Urobilinogen Negative (Negative)
[2018-12-26] MEDS ORDERED: fentaNYL* 50 MCG/ML 2 ML VIAL (100 MCG VIAL) ONE (10:20)
[2018-12-26] MEDS ORDERED: Heparin(*) 1000 UNIT/ML 10 ML VIAL CATH LAB IV ONE (10:20)
[2018-12-26] MEDS ORDERED: Midazolam* 1 MG/ML 5 ML VIAL (5 MG) ONE (10:20)
[2018-12-26] MEDS ORDERED: VERAPAMIL 2.5 MG/ML 2 ML VIAL ** 5 mg/2 ml ONE (10:21)
[2018-12-26] MEDS ORDERED: Lidocaine 1% INJ* 10 MG/ML 30 ML SDV ONE (10:21)
[2018-12-26] MEDS ORDERED: nitroGLYCERIN DRIP* 25,000 MCG/250 ML BTL ONE (10:21)
[2018-12-26] MEDS ORDERED: Iohexol 350 (CONTRAST) 200 ML MDV IV ONE (10:21)
[2018-12-26] MEDS ORDERED: Iodixanol 320 (CONTRAST) 100 ML SDV ONE (10:23)
--- NOTE | 2018-12-26 16:28 | CATH ---
CC: Dr. Adi King; Dr. Linette Garcia * CARDIAC CATHETERIZATION REPORT: DATE OF PROCEDURE: 12/26/18 INDICATION FOR PROCEDURE: Asked by Dr. Eva Gaines, the consulting claims processor in the hospital, to perform cardiac catheterization in light of patient presenting with acute coronary artery syndrome with elevated troponins and chest discomfort. PROCEDURE: Coronary arteriography, left heart catheterization, left ventriculography via the right radial artery. CONSENT: The patient was interviewed and examined on the floor of the hospital , where the risks and benefits were explained. She understood them and wished to proceed. APPROACH UTILIZED: Of note, in the holding area of the [facility], the radial artery was assessed under ultrasound and found to be an acceptable approach and as such this was the choice of entry. PRE-CARDIAC CATHETERIZATION LABORATORY RESULTS: Hemoglobin and hematocrit of 11.6 and 35, white count 6000, platelet count 143,000. BUN and creatinine of 28 and 1.0, sodium 138, potassium 4.0, chloride 108, bicarb 24. EQUIPMENT UTILIZED: 1. Right radial artery sheath - a 6-Colombian Terumo Glidesheath. 2. Diagnostic guidewires: A 260 length Bazan curved guidewire and a 260 length Wholey exchange guidewire. 3. Diagnostic coronary catheter: A 5-Colombian TIG4 curve catheter. 4. Left heart catheterization catheter, a 5-Colombian PIG short radial catheter. 5. The radial artery closure device - a Vasc Band by [employer]. MEDICATIONS GIVEN DURING THE PROCEDURE: 1. Radial artery cocktail including 3000 units of heparin, 300 mcg of nitroglycerin, and 3 mg of verapamil. 2. The patient had already received aspirin 81 mg and Plavix 75 mg prior to coming to the woodworking shop laborer. DESCRIPTION OF PROCEDURE: The patient was brought to the cardiovascular laboratory where a formal time-out was performed. She was prepped and draped in sterile fashion and under ultrasound guidance, the right radial artery was cannulated and the sheath was placed. Diagnostic catheterization was carried out utilizing the 5- [place] TIG4 catheter. Following this, left heart catheterization was performed utilizing the pigtail catheter where central aortic pressure was recorded above the aortic valve. The catheter was then passed across the aortic valve into the left ventricle and left ventricular pressure was recorded. Left ventriculography was performed utilizing a total of 24 cc of Visipaque dye at a rate of 12 cc per second. The catheter was then pulled back across the aortic valve to recheck gradient. Following this, the films were reviewed. The catheter and sheath were removed and hemostasis was obtained with a Vasc Band. The reverse Barbeau was a B. The total contrast used was 90 cc of Visipaque dye. The radiation exposure included 10.1 minutes of fluoro time. The air kerma radiation was 1445 milligray. The DAP radiation was 9530 microgray per meter squared. RESULTS: HEMODYNAMIC DATA: Left heart catheterization revealed central aortic pressure recorded at 146/ 60 with a mean of 99. Left ventricular pressure 146 over left ventricular end- diastolic pressure of 16. LEFT VENTRICULOGRAPHY: Performed in the [place] projection revealed severe hypokinesis of the very apex of the left ventricle with hypokinesis seen of the distal anterior wall. There was mild hypokinesis seen in the mid anterior wall. The overall ejection fraction is estimated at 50%. CORONARY ARTERIOGRAPHY: A. Right coronary artery - the right coronary artery was a dominant vessel supplying the posterior descending artery. There were no significant posterior left ventricular branches seen. There were multiple acute marginal branches supplied as well. The third acute marginal branch was noted to have a 90% blockage in its proximal portion and appeared to be a somewhat small caliber vessel barely 1.7 mm. The right coronary artery had an area proximally that was stented, which had mild 20% narrowing just before the beginning of the stent. There was a mild 20% to 25% narrowing in the mid segment. The posterior descending artery did not have any significant disease. B. Left coronary artery: 1. Left main - there was mild tapering of the distal left main of 10%. 2. Left anterior descending artery - the proximal left anterior descending artery had [id number] tapering prior to the first septal community center director with a degree of narrowing noted to be perhaps 40%. Just after the first septal community center director, there was an area of 40% narrowing within the proximal area of the first stent in the left anterior descending artery. Of note, it appears that this is also the area where a second stent had been placed within the first one. The left anterior descending artery had mild luminal irregularities. The distal left anterior descending artery had a 50% narrowing in a small caliber area right toward to the apex of the heart. The LAD turned onto the inferior surface of the heart becoming small in caliber. The first septal community center director appeared to have an ostial narrowing of as much as 70%. The mid diagonal branch had an ostial narrowing of 70% as well. The mid diagonal branch was a small caliber vessel. 3. Circumflex artery - a nondominant vessel supplying a high trifurcation marginal branch followed by a thin first and second obtuse marginal branch followed by a third mid obtuse marginal branch and ending in a low-lying posterior left ventricular branch. The trifurcation marginal branch artery branch into superior and inferior branch and traverse from the upper posterior to the low posterior apical region. There was tortuosity, but no significant disease seen. The mid portion of the circumflex had a mild 20% to 25% narrowing and the distal portion had a 45% narrowing before the last posterior left ventricular branch. There was mild disease seen in the proximal portion of the circumflex artery. OVERALL ASSESSMENT: Low normal left ventricular contractility with focal wall motion abnormality involving the apical region greater than the distal anterior wall. This apparently has been seen in the past as well and stems from the first heart attack she had back in 2006. Moderate coronary artery disease is noted in the proximal LAD without high-grade stenosis present within the body of the LAD. The first septal community center director and mid diagonal branches have 70% ostial narrowings noted, but are small in caliber in general and are not vessels that would be approached for intervention. The acute marginal branch of the right coronary artery with 90% blockage was noted as well, but is small in caliber as described above and I would continue with medical management for this. [id number]/[facility] #: [id number] BRAEDEN
--- NOTE | 2018-12-26 18:27 | PN ---
Subjective Date of Service: 12/26/18 Interval History: HOSPITALIST PROGRESS NOTE Patient seen and examined at bedside. Care reviewed and d/w Kay Lynne RN. She feels well today. Denies any further episodes of CP, N/V/D. Tolerating diet well. Family History: Unchanged from Admission Social History: Unchanged from Admission Past Medical History: Unchanged from Admission Objective Active Medications: Acetaminophen (Tylenol Tab*) 650 mg PO Q4H PRN PRN Reason: FEVER/PAIN Al Hydrox/Mg Hydrox/Simethicone (Maalox Plus*) 30 ml PO Q6H PRN PRN Reason: INDIGESTION Albuterol (Ventolin 2.5 Mg/3 Ml Neb.Mariam*) 1 mg INH .SEE INSTRUCTIONS PRN PRN Reason: SOB/WHEEZING Aspirin (Aspirin 81 Mg Chew Tab*) 81 mg PO DAILY COUNT INCLUDES THE [facility] Last Admin: 12/26/18 07:54 Dose: 81 mg Atorvastatin Calcium (Lipitor*) 40 mg PO BEDTIME COUNT INCLUDES THE [facility] Last Admin: 12/25/18 21:20 Dose: 40 mg Clopidogrel Bisulfate (Plavix Tab*) 75 mg PO DAILY COUNT INCLUDES THE [facility] Last Admin: 12/26/18 07:54 Dose: 75 mg Dextrose (D50w Syringe 50 Ml*) 12.5 gm IV PUSH .FOR FS < 60 - SS PRN PRN Reason: FS < 60 Fluoxetine HCl (Prozac Cap*) 20 mg PO DAILY COUNT INCLUDES THE [facility] Last Admin: 12/26/18 07:54 Dose: 20 mg Fluticasone Propionate (Flonase Nasal [place] 50mcg*) 2 spray BOTH NARES DAILY COUNT INCLUDES THE [facility]; Protocol Last Admin: 12/26/18 07:53 Dose: 2 spray Insulin Human Lispro (Humalog*) 0 units SUBCUT Q6H COUNT INCLUDES THE [facility]; Protocol Last Admin: 12/26/18 13:34 Dose: Not Given Levalbuterol HCl (Xopenex Hfa Inhaler*) 2 puff INH .SEE INSTRUCTIONS PRN PRN Reason: WHEEZING Lisinopril (Prinivil Tab*) 5 mg PO DAILY COUNT INCLUDES THE [facility] Last Admin: 12/26/18 07:53 Dose: 5 mg Metoprolol Tartrate (Lopressor Tab*) 25 mg PO BID COUNT INCLUDES THE [facility] Last Admin: 12/26/18 07:54 Dose: 25 mg Mometasone Furoate/Formoterol Fumar (Dulera 200/5 Mdi*) 2 puff INH BID COUNT INCLUDES THE [facility]; Protocol Last Admin: 12/26/18 07:52 Dose: 2 puff Montelukast Sodium (Singulair Tab*) 10 mg PO DAILY COUNT INCLUDES THE [facility] Last Admin: 12/26/18 07:54 Dose: 10 mg Nitroglycerin (Nitroglycerin Tab 0.4 Mg*) 0.4 mg SL .PRN PRN PRN Reason: PAIN - CHEST Pantoprazole Sodium (Protonix Tab*) 40 mg PO DAILY COUNT INCLUDES THE [facility] Last Admin: 12/26/18 07:54 Dose: 40 mg Vital Signs - 8 hr 12/26/18 12/26/18 12/26/18 12:11 12:24 12:26 Temperature Pulse Rate 60 60 63 Respiratory 13 14 Rate Blood Pressure 145/79 136/69 (mmHg) O2 Sat by Pulse 99 97 Oximetry 12/26/18 12/26/18 12/26/18 12:27 12:39 12:54 Temperature Pulse Rate 63 60 74 Respiratory 16 Rate Blood Pressure (mmHg) O2 Sat by Pulse 97 Oximetry 12/26/18 12/26/18 12/26/18 13:00 13:47 13:56 Temperature Pulse Rate 66 75 61 Respiratory 16 13 Rate Blood Pressure 146/72 (mmHg) O2 Sat by Pulse 97 99 Oximetry 12/26/18 12/26/18 12/26/18 14:00 14:09 14:11 Temperature Pulse Rate 64 63 62 Respiratory 16 17 Rate Blood Pressure 136/72 (mmHg) O2 Sat by Pulse 98 97 Oximetry 12/26/18 12/26/18 12/26/18 14:26 15:12 15:15 Temperature 97 F 97.0 F Pulse Rate 66 65 65 Respiratory 12 18 Rate Blood Pressure 159/79 122/42 122/42 (mmHg) O2 Sat by Pulse 98 100 100 Oximetry 12/26/18 12/26/18 16:30 17:25 Temperature 97.8 F 97.8 F Pulse Rate 77 64 Respiratory 14 20 Rate Blood Pressure 128/61 142/54 (mmHg) O2 Sat by Pulse 98 98 Oximetry Oxygen Devices in Use Now: None Appearance: Obese lady lying in bed in NAD. Eyes: No Scleral Icterus Ears/Nose/Mouth/Throat: Mucous Membranes Moist Neck: Trachea Midline Respiratory: Symmetrical Chest Expansion and Respiratory Effort, Clear to Auscultation Cardiovascular: RRR - Normal S1 and S2 Neurological: Alert and Oriented x 3, NL Muscle Strength and Tone Result Diagrams: 12/26/18 03:32 12/26/18 03:32 Assess/Plan/Problems-Billing Assessment: Mrs Aquino is a 63yo F with PMH of obesity with BMI 38, type 2 DM, MERT on CPAP, asthma, CAD s/p 3 stents to LAD in 2006, 1 stent LAD and 1 stent RCA in 2008, who presented to ED with c/o CP, found to have NSTEMI. - Patient Problems (1) NSTEMI (non-ST elevated myocardial infarction) Comment: - Patient has been chest pain free during hospital stay. - Troponin peaked at 1.29. - Cardiac cath - acute marginal branch of the RCA has 90% blockage. Plan for Lexiscan in AM to see if this is the culprit lesion. - Suspect a component of demand ischemia in the setting of food poisoning precipitating her symptoms. - Continue Aspirin, Clopidogrel, Atorvastatin, Metoprolol. (2) Food poisoning Comment: - Symptoms started after eating at [employer] - resolved now. (3) Anemia Comment: - Mild anemia and thrombocytopenia - likely dilutional in the setting of IVD resuscitation. - Continue to monitor. (4) NITESH (acute kidney injury) Comment: - Likely pre-renal in the setting with dehydration/food poisoning. - Resolved - creatinine back at baseline. (5) Type 2 diabetes mellitus Comment: - A1c is 6.3. - Trulicity and Metformin on hold. - Continue Lispro SS only. (6) Asthma Comment: - Stable. - Continue bronchodilators and inhaled steroids. (7) DVT prophylaxis Comment: - SQ heparin. (8) Full code status Status and Disposition: Inpatient.
[2018-12-26] MEDS: Atorvastatin* 40 MG TAB PO SCH (21:20)
[2018-12-26] MEDS: Heparin VIAL(*) 5000 UNITS/ML VIAL (FIVE THOUSAND) SUBCUT SCH (21:20)
[2018-12-27] MEDS: Insulin LISPRO* 1 UNITS UNIT SUBCUT SCH ×2 (02:11→08:33)
[2018-12-27] MEDS: Heparin VIAL(*) 5000 UNITS/ML VIAL (FIVE THOUSAND) SUBCUT SCH (05:50)
[2018-12-27 06:35] LABS: ABS Basophils 0 10^3/ul (0-0.2); ABS Eosinophils 0.3 10^3/ul (0-0.6); ABS Lymphocytes 1.5 10^3/ul (1.0-4.8); ABS Monocytes 0.5 10^3/ul (0-0.8); ABS Neutrophils 2.6 10^3/ul (1.5-7.7); ABS Nucleated RBC 0 10^3/ul; Eosinophil % 6.4 %; Hematocrit 37 % (33-41); Hemoglobin 12.2 g/dL (12.0-16.0); Lymphocyte % 30.4 %; Mean Corpuscular HGB Conc 33 g/dL (31-36); Mean Corpuscular Hemoglobin 31 pg (27-31); Mean Corpuscular Volume 93 fL (80-97); Mean Platelet Volume 8.3 fL (7.4-10.4); Nucleated Red Blood Cells % 0; Platelet Count 163 10^3/uL (150-450); Red Blood Count 3.93 10^6 /uL (3.70-4.87); Red Cell Distribution Width 13 % (10.5-15)
[2018-12-27 06:51] LABS: BUN/Creatinine Ratio 20.2 (8-20); Calcium 9.2 mg/dL (8.6-10.3); EGFR African American 68.3 (>60); EGFR Non-African American 56.5 (>60); Potassium 4.3 mmol/L (3.5-5.0)
[2018-12-27] MEDS: Mometasone/Formoter 200/5 MDI INH SCH (08:08)
[2018-12-27] MEDS: Lisinopril TAB* 5 MG PO SCH (09:33)
[2018-12-27] MEDS: Metoprolol Tartrate TAB* 25 MG PO SCH (09:33)
[2018-12-27] MEDS: Fluticasone NASAL SPRAY 50MCG* 16 gm SPRAY BTL BOTH NARES SCH (10:05)
[2018-12-27] MEDS: Aspirin 81 mg CHEW TAB* 81 MG TAB.CHEW PO SCH (10:05)
[2018-12-27] MEDS: Clopidogrel TAB* 75 MG PO SCH (10:05)
[2018-12-27] MEDS: FLUoxetine CAP* 20 MG PO SCH (10:05)
[2018-12-27] MEDS: Montelukast Sodium TAB* 10 MG PO SCH (10:05)
[2018-12-27] MEDS: Pantoprazole TAB * 40 MG TAB PO SCH (10:05)
[2018-12-27 13:31] VITALS: BP 127/69
--- NOTE | 2018-12-28 04:20 | DS ---
DISCHARGE SUMMARY: DATE OF ADMISSION: 12/25/18 DATE OF DISCHARGE: 12/27/18 ADMITTING PROVIDER: TEJAS Jean-Baptiste PRIMARY CARE PROVIDER: Dr. Agata Garcia. OUTPATIENT MISSION COMMANDER: Dr. Adi King. CONSULTING PATENTED HOGSHEAD ASSEMBLER: Dr. Catarino Perez. ATTENDING PHYSICIAN ON THE DAY OF DISCHARGE: Cedric Riggs MD CHIEF COMPLAINT: Chest pain. PRINCIPAL DIAGNOSIS: [id number] myocardial infarction. HISTORY OF PRESENT ILLNESS: Carissa Aquino is 63-year-old female with past medical history of CAD, status post two stents; diabetes mellitus type 2; asthma ; obesity; who presented to emergency room with chest pain starting 9 p.m. the night prior to admission. She had multiple nausea and vomiting events along with diarrhea. She had eaten at [employer] previously. Pain radiated to her left shoulder and neck along with the back. Please see H&P for full details. She was having diaphoresis and chills. She did take nitroglycerin and improved , and she was able to fall asleep, though upon awakening, the chest pain was still not completely resolved, so she presented to the emergency room via private vehicle. She follows with Dr. King and stated that she gets chest pain approximately once per month at rest which is relieved by nitroglycerin. Initial evaluation included admission troponin of 0.57 and she was referred to hospitalist service for admission for acute coronary syndrome and NSTEMI. She was treated with aspirin, beta blockers, statins, and Plavix. Her Coreg was switched to metoprolol. Heparin drip was started. The troponins did peak at 1.29 later on the first hospital day, and on 12/26/18, hospital day #2, Catarino Perez took the patient for a left heart catheterization. This demonstrated ejection fraction of 50%. The third acute marginal branch of the RCA was noted to have a 90% blockage at the proximal portion and was of small caliber. The RCA had mild 20% narrowing before the proximal stent and 20% to 25% narrowing in the mid segment. Left main had 10% stenosis. The proximal left anterior descending artery had 40% and again 40% narrowing in the proximal area of the first stent in the left LAD. The distal LAD had 50% narrowing. The mid diagonal branch had ostial narrowing of 70% and the first septal wax engraver had ostial narrowing as much as 70%. Mid portion of the circumflex had 20% to 25% narrowing, distally 45% narrowing before the posterior left ventricular branch. In summary, the lesion that was potentially suspect included the acute marginal branch of the right coronary artery with 90% blockage but was of small caliber and recommendation was for medical management for this. The patient told Dr. Perez about all her plans of travel including arrangements for her son 's wedding in the [place] area and recommended that nuclear medicine scan be performed to rule out that this acute marginal area showed any evidence of reversible ischemia. This has returned as low risk study and she was considered stable for discharge. She had been as I said started on Plavix in the hospital. Of note, this does interact with her fluoxetine 20 mg daily, and therefore, this medication was switched to Brilinta 90 mg p.o. b.i.d. Both these suggestions will be evaluated by Dr. King who will be seeing the patient in approximately 10 days on 01/07/19. DISCHARGE MEDICATIONS: Include: 1. Albuterol nebulizer p.r.n. 2. Aspirin 81 mg daily. 3. Budesonide nasal spray b.i.d. 4. Carvedilol 6.25 mg p.o. b.i.d. 5. Brilinta 90 mg p.o. b.i.d. 6. Trulicity 0.7 mg subcutaneous weekly. 7. Fluoxetine 20 mg p.o. daily. 8. Advair inhaled b.i.d. 9. Xopenex inhaler 2 puffs inhaled p.r.n. 10. Lisinopril 5 mg daily. 11. Metformin 1000 mg p.o. b.i.d. 12. Singulair 10 mg p.o. daily. 13. Nitroglycerin 0.4 mg sublingual q.5 minutes p.r.n. 14. Protonix 40 mg p.o. daily. 15. Simvastatin 80 mg p.o. daily. DIET: Heart healthy, unchanged. FOLLOWUP: Please follow up with Dr. Linette Garcia within [address] Adi King, I have arranged appointment when he gets back on 01/07/19. DISPOSITION: Home. CONDITION: Improved. TIME SPENT ON DISCHARGE: 40 minutes. [id number]/[facility] #: [id number] MTDD
== END 2018-12-27 13:50 | disposition home or self-care (01) | DRG 190 ==
LOC: ED 08:49 → MEDTELE 11:48
PROVIDERS: ADMIT Internal Medicine; ATTEND Internal Medicine
PROC: 4A023N7 Measurement of Cardiac Sampling and Pressure, Left Heart, Percutaneous Approach (ICD-10-PCS; 2018-12-26)
PROC: B2151ZZ Fluoroscopy of Left Heart using Low Osmolar Contrast (ICD-10-PCS; 2018-12-26)
PROC: B2111ZZ Fluoroscopy of Multiple Coronary Arteries using Low Osmolar Contrast (ICD-10-PCS; principal; 2018-12-26 10:45)
PROC: 4A02XM4 Measurement of Cardiac Total Activity, External Approach (ICD-10-PCS; 2018-12-27)
DX: I21.4 Non-ST elevation (NSTEMI) myocardial infarction (principal); E11.9 Type 2 diabetes mellitus without complications; I25.10 Atherosclerotic heart disease of native coronary artery without angina pectoris; E78.00 Pure hypercholesterolemia, unspecified; I10 Essential (primary) hypertension; J45.909 Unspecified asthma, uncomplicated; K21.9 Gastro-esophageal reflux disease without esophagitis; M17.0 Bilateral primary osteoarthritis of knee; J31.0 Chronic rhinitis; G43.909 Migraine, unspecified, not intractable, without status migrainosus; F98.8 Other specified behavioral and emotional disorders with onset usually occurring in childhood and adolescence; E66.9 Obesity, unspecified; G47.33 Obstructive sleep apnea (adult) (pediatric); F42.9 Obsessive-compulsive disorder, unspecified; D64.9 Anemia, unspecified; D69.6 Thrombocytopenia, unspecified; E86.0 Dehydration; T62.91XA Toxic effect of unspecified noxious substance eaten as food, accidental (unintentional), initial encounter; Z86.14 Personal history of Methicillin resistant Staphylococcus aureus infection; Z83.3 Family history of diabetes mellitus; Z95.5 Presence of coronary angioplasty implant and graft; Z68.38 Body mass index [BMI] 38.0-38.9, adult; Z90.710 Acquired absence of both cervix and uterus; Z81.1 Family history of alcohol abuse and dependence; Z88.1 Allergy status to other antibiotic agents; I25.2 Old myocardial infarction; Z91.018 Allergy to other foods; Z88.0 Allergy status to penicillin; Z91.013 Allergy to seafood; Z79.82 Long term (current) use of aspirin; Z79.84 Long term (current) use of oral hypoglycemic drugs; Z85.828 Personal history of other malignant neoplasm of skin; Z79.02 Long term (current) use of antithrombotics/antiplatelets; Y92.9 Unspecified place or not applicable
CPT/HCPCS: 36415; 71046; 76937; 78452; 80048; 80053; 80061; 81003; 83036; 83605; 83880; 84484; 85025; 85347; 85730; 86140; 93005; 93017; 93458; 94640; 99284; A9270-GY; A9502; J1644; J2250; J3010

== ENCOUNTER 2019-06-22 11:38 | Emergency (ER) | payer BC ==
--- OUTSIDE RECORDS SUMMARY | 2019-06-22 11:42 | XMS REPORT | Continuity of Care Document ---
:1955 External Reference #:[id number] Author Name Linette Garcia M.D. (transmitted by agent of provider Swati Hussein) Address [address] [facility], [place] [address] Care Team Providers Name Role Phone Mag Love MD - Internal Care Team Information Pharmacist Technician Medicine Pool Dalton MD - Family Care Team Information Pharmacist Technician [phone] Medicine Adi King MD - Cardiovascular Care Team Information Pharmacist Technician [phone] Disease Problems Active Problems Provider Date Coronary arteriosclerosis Linette Garcia M.D. Onset: 07/13/2010 Asthma without status asthmaticus Linette Garcia M.D. Onset: 07/13/2010 Sleep apnea Linette Garcia M.D. Onset: 07/13/2010 Type 2 diabetes mellitus Linette Garcia M.D. Onset: 09/20/2011 Obstructive sleep apnea of adult Jaye Cohen DNP, RN, INDU Onset: 03/2014 Obesity Jaye Cohen DNP, RN, INDU Onset: 05/16/2016 Seasonal allergic rhinitis Jaye Cohen DNP RN, INDU Onset: 05/16/2016 Social History Type Date Description Comments Sex Unknown Tobacco Use Start: Unknown Never Smoked Cigarettes ETOH Use Currently consumes 2-3 drinks once or alcohol twice a month Tobacco Use Start: Unknown Patient has never smoked Recreational Drug Use Denies Drug Use Smoking Status Reviewed: 05/09/19 Patient has never smoked Exercise Type/Frequency Exercises sporadically seasonal occasional aerobic videos summer walking 2 miles per day Allergies, Adverse Reactions, Alerts Active Allergies Reaction Severity Comments Date Sulfa Hives, Urticaria Severe 01/25/2010 Avelox Nausea and Vomiting Moderate 01/25/2010 Augmentin vomiting diarrhea nausea 06/11/2012 Erythromycin vomiting 09/03/2014 Medications Active Medications SIG Qnty Indications Ordering Date Provider Montelukast Sodium Take One Tablet 30tabs Linette 11/25/2018 By Mouth Every Lala Garcia 10mg Tablets Day Trulicity Inject The 2units E11.9 Ag Dunne NP 11/13/2018 Contents Of One 0.75mg/0.5ML Pen (0.5ML) Under Solution Pen-Inject The Skin Once Weekly Truetest Test Test twice a day 100units E11.65 Linette 07/16/2017 Dx E 11.65 Lala Garcia Strips Nebulizer And For use 2-3 times 1units 493.00 Linette 04/05/2015 Supplies daily Lala Garcia Device Metformin HCL take 1 tablet by 180tabs E11.9 Linette 01/12/2015 mouth two times Lala Garcia 1000mg Tablets daily Nitrostat place one tablet 25tabs [facility] 07/14/2014 0.4mg under the tongue Lala Garcia Tablets Sub for chest pain or high blood pressure. Coreg take one tablet 180tabs Linette 01/05/2013 6.25mg by mouth twice a Lala Garcia Tablets day Trueresult Blood Use For Testing 1units E11.65 Linette 12/17/2012 Glucose Monitoring One To Two Times Lala Garcia System Daily W/Device Kit Estrace apply one-half 127.5units Linette 12/12/2012 0.1mg/GM gram to perineum Lala Garcia Cream at bedtime two to four times a week as needed Finacea once daily 50units Linette 12/12/2012 15% Gel Lala Garcia Test Strips For for testing 1-2 100units E11.65 Linette 11/12/2012 Glucometer times daily Dx Lala Garcia E11.65 Lancets for glucometer 60units Linette 11/12/2012 Misc Lala Garcia Glucometer for testing 1-2 1units E11.65 Linette 11/12/2012 Strips times daily Cotton, M.D. Xopenex HFA inhale one puff 15units J45.909 Linette 05/03/2010 by mouth four Cotton M.DBlayne 45mcg/Act Aerosol times a day as needed Aspirin 1 tablet once Linette 01/26/2010 81mg daily Cotton MBlayneDBlayne Tablets DR Carmella Chatman inhale one spray 8.6units [facility] 01/25/2010 into each nostril Lala Garcia 32mcg/Act twice daily. Suspension Simvastatin take one tablet 30tabs Linette 01/25/2010 80mg by mouth at Haris GarciaDBlayne Tablets bedtime Lisinopril take 1 tablet by 90tabs [facility] 01/25/2010 5mg mouth every day Lala Garcia Tablets Advair Diskus inhale 1 puff by 60units [facility] 01/25/2010 mouth two times Haris GarciaDBlayne 500-50mcg/Dose daily Aerosol Fluoxetine HCL Take 1 Capsule By 45caps [facility] 01/25/2010 20mg Mouth On Even Haris GarciaDBlayne Capsules Days And Take 2 Capsules By Mouth On Odd Days Pantoprazole Sodium Take One Tablet 60tabs Linette 01/25/2010 By Mouth Twice A Cotton M.DBlayne 40mg Tablets DR Day History Medications Plavix 1 by mouth every 90tabs [facility], 12/30/2018 - 75mg Tablets day M.D. 01/06/2019 Immunizations CPT Code Status Date Vaccine Lot # [id number] Given 10/15/2018 Fluzone High Dose [id number] Given 06/09/2017 Influenza Virus Vaccine, Quadrivalent, Split, Preservative Free [id number] Given 06/03/2016 Flu Vaccine NOS Q2037 Given 06/24/2015 Fluvirin Im 3Yrs And Older [id number] Given 01/12/2015 Zoster (Zostavax) [id number] Given 06/18/2014 Afluria Vaccine [id number] Given 09/15/2013 Tdap - Tetanus/Diptheria/Acellular Pertussis [id number] Q2037 Given 08/08/2013 Fluvirin Im 3Yrs And Older Vital Signs Date Vital Result Comment 05/09/2019 12:53pm Height 63 inches 5'3" Weight 227.38 lb Heart Rate 77 /min BP Systolic Sitting 140 mmHg BP Diastolic Sitting 80 mmHg Body Temperature 97.9 F O2 % BldC Oximetry 95 % BMI (Body Mass Index) 40.3 kg/m2 04/18/2019 11:09am Height 63 inches 5'3" Weight 230.00 lb Heart Rate 68 /min reg BP Systolic Sitting 128 mmHg 70 Respiratory Rate 12 /min BMI (Body Mass Index) 40.7 kg/m2 Results Test Date Facility Test Result H/L Range Note Laboratory test 03/07/2019 [facility] House Hemoglobin A1c 6.1 5-7 finding Laboratory test 01/22/2019 [facility] Cytology SEE RESULT [address] [place] [address] [phone] Influenza A & B 12/25/2018 [facility] Influenza A NEGATIVE Negative [address] [place] [address] [phone] Influenza B Molecular NEGATIVE Negative CBC Auto 12/25/2018 [facility] White Blood 9.1 10^3/uL Normal 3.5-10.[address] [place] [address] [phone] Red Blood Count 4.28 10^6/uL Normal 3.70-4.87 Hemoglobin 13.5 g/dL Normal 12.0-16.0 Hematocrit 40 % Normal 33-41 Mean Corpuscular Volume 93 fL Normal 80-97 Mean Corpuscular Hemoglobin 32 pg High 27-31 Mean Corpuscular HGB Conc 34 g/dL Normal 31-36 Red Cell Distribution Width 13 % Normal 10.5-15 Platelet Count 208 10^3/uL Normal 150-450 Mean Platelet Volume 8.6 fL Normal 7.4-10.4 Abs Neutrophils 7.4 10^3/uL Normal 1.5-7.7 Abs Lymphocytes 0.9 10^3/uL Low 1.0-4.8 Abs Monocytes 0.7 10^3/uL Normal 0-0.8 Abs Eosinophils 0.1 10^3/uL Normal 0-0.6 Abs Basophils 0 10^3/uL Normal 0-0.2 Abs Nucleated RBC 0 10^3/uL Granulocyte % 81.1 % Lymphocyte % 9.5 % Monocyte % 8.1 % Eosinophil % 0.9 % Basophil % 0.4 % Nucleated Red Blood Cells % 0 Laboratory test 12/25/2018 [facility] B-Type 42 pg/mL <=[address] [place] [address] Peptide BNP [phone] Comp Metabolic 12/25/2018 [facility] Sodium 135 Normal 135- [address] mmol/[place] [address] [phone] Potassium 5.0 mmol/L Normal 3.5-5.0 Chloride 104 mmol/L Normal 101-111 Co2 Carbon Dioxide 23 mmol/L Normal 22-32 Anion Gap 8 mmol/L Normal 2-11 Glucose 147 mg/dL High 70-100 Blood Urea Nitrogen 36 mg/dL High 6-24 Creatinine 1.26 mg/dL High 0.51-0.95 BUN/Creatinine Ratio 28.6 High 8-20 Calcium 9.3 mg/dL Normal 8.6-10.3 Total Protein 7.0 g/dL Normal 6.4-8.9 Albumin 4.0 g/dL Normal 3.2-5.2 Globulin 3.0 g/dL Normal 2-4 Albumin/Globulin Ratio 1.3 Normal 1-3 Total Bilirubin 1.00 mg/dL Normal 0.2-1.0 Alkaline Phosphatase 66 U/L Normal 34-104 Alt 19 U/L Normal 7-52 Ast 19 U/L Normal 13-39 Egfr Non- 42.8 >60 Egfr 51.7 >60 3 Laboratory test 12/25/2018 [facility] C Reactive 48.62 mg/L High <8.[address] [place] [address] [phone] Troponin-I (TnI) 0.57 ng/mL Critical high <0.04 4 Lactic Acid 1.8 mmol/L Normal 0.5-2.0 5 1 SEE RESULT BELOW Name: ADDI SOLANO : [address]: Roseann Castellano MD Acct: [id number] Unit: [id number] AGE: 63 Location: [facility] Re01/22/19 SEX: F Status: REG REF SPEC: [id number] SAIRA: 01/22/19 [facility] DR: Roseann Castellano MD REQ: [id number] RECD: 01/23/19 STATUS: DAWN ASCENCIO DR: Linette Garcia MD _ ORDERED: TP IMAGE ANALYS, HPV/Thin Prep COMMENTS: [id number] Negative for Intraepithelial lesion or Malignancy Shift in pepper suggestive of bacterial vaginosis Date Time Test Result Flag (u) Normal Range 01/22/19 1459 HPV RNA Negative Negative The high-risk HPV types detected by the assay include: 16, 18, 31, 33, 35, 39, 45, 51, 52, 56, 58, 59, 66, and 68. A. Vaginal Specimen Adequacy: Satisfactory of evaluation Patient Information: HPV: High risk HPV RNA testing regardless of pap results. Actual Specimen Date: 01/22/19 LMP If Unknown: 2005 Spec Date if unknown: 2013 Post Menopausal?: Y Hysterectomy?: Y Previous Abnormal Pap Smears?:Y Signed by and Reported on: JESSE Andres(ASCP) [id number] This Pap test was evaluated with the assistance of the CellScapePrep Test Imaging System. Due to cytologic findings at the pantograph i engraver microscope, comprehensive manual rescreening by a Instrument Maker Apprentice may be required. The Pap Smear is a screening test designed to aid in the detection of premalignant and malignant conditions of the uterine cervix. It is not a diagnostic procedure and should not be used as the sole means of detecting cervical cancer. Both false- positive and false- negative reports do occur. Depending on your risk status, a Pap smear should be obtained and evaluated every 1-3 years. END OF REPORT DEPARTMENT OF PATHOLOGY, [address] [place] [address] Nicho Osorio M.D. Director [facility] # [id number] 2 High School Social Studies Teacher: [id number] 3 Because ethnic data is not always readily available, this report includes an eGFR for both -Americans and non- Americans. The National Kidney Disease Education Program (NKDEP) does not endorse the use of the MDRD equation for patients that are not between the ages of 18 and 70, are , have extremes of body size, muscle mass, or nutritional status, or are non- or non-. According to the National Kidney Foundation, irrespective of diagnosis, the stage of the disease is based on the level of kidney function: Stage Description GFR(mL/min/1.73 m(2)) 1 Kidney damage with normal or decreased GFR 90 2 Kidney damage with mild decrease in GFR 60-89 3 Moderate decrease in GFR 30-59 4 Severe decrease in GFR 15-29 5 Kidney failure <15 (or dialysis) 4 Result TnIDx:0.57 Called to [id number] at: 11:08:53 by:[id number] Read back by: [id number] Troponin-I testing on Plasma Separator Tubes (PST) has a known false positive rate of 0.20-0.40%. All positive troponins reflex immediate secondary confirmatory testing. 5 [facility] Severe Sepsis and Septic Shock Management Bundle Measure requires all lactic acids initially measuring >2.0 mmol/L be repeated. Procedures Date Code Description Status 12/27/2018 48015 Treadmill Interp/Report Only Completed 12/27/2018 61530 Stress Test Supervsn W/Out I/R Completed 12/27/2018 27303 EKG, Interpretation Only Completed 12/26/2018 46913 Left Heart Cath. Incl S/I Coronaries, Angio S/I V Gram Completed If Done 12/26/2018 80906 EKG, Interpretation Only Completed 12/26/2018 39488 EKG, Interpretation Only Completed 11/20/2018 07666 EKG Tracing & Interpretation Completed 07/20/2018 [id number] Diabetic Retinal Eye Exam Completed 01/17/2018 15092572 Mammogram Completed 03/01/2016 388759664 Diabetic Retinal Eye Exam Completed 11/18/2014 [id number] Mammogram Completed 11/09/2014 [id number] Mammogram Completed 11/03/2014 343363092 Diabetic Retinal Eye Exam Completed 09/15/2013 649670841 Diabetic Retinal Eye Exam Completed 03/29/2011 18333386 Mammogram Completed 2010 [id number] Colonoscopy Completed 09/23/2009 [id number] Bone Mineral Density Test Completed 07/31/2008 92963296 Mammogram Completed 07/26/2005 [id number] Mammogram Completed 01/17/2005 16707722 Colonoscopy Completed 01/02/2005 [id number] Mammogram Completed 12/08/2004 89678054 Mammogram Completed Medical Devices Description No Information Available Encounters Type Date Location Provider Dx Diagnosis Office Visit 04/18/2019 Pulmonology And Jaye Cohen, G47.33 Obstructive sleep 11:00a [facility] RN, NEWSPAPER CLIPPER-BC apnea (adult) Quality Technician (pediatric) Z68.41 Body mass index (BMI) 40.0-44.9, adult Office Visit 03/07/2019 10:20a [facility] Internal Linette E11.9 Type 2 diabetes Kemal Garcia M.D. mellitus without Ccmob complications M25.512 Pain in left shoulder Office Visit 02/17/2019 9:20a [facility] Dermatology Eric Correa MD B35.3 Tinea pedis I78.8 Other diseases of capillaries L82.1 Other seborrheic keratosis D22.9 Melanocytic nevi, unspecified Z08 Encntr for follow-up exam after trtmt for malignant neoplasm Z85.828 Personal history of other malignant neoplasm of skin Office Visit 01/07/2019 2:15p [facility] Adi Taylor R07.9 Chest pain, Of Quality Technician [facility] Lala King unspecified I21.4 Non-St elevation (Nstemi) myocardial infarction I25.10 Athscl heart disease of blackfeet coronary artery w/o ang pctrs Office Visit 12/27/2018 10:30a [facility] Cedric Riggs MD I21.4 Non-St elevation Assoc,pc (Nstemi) Hospitalists myocardial infarction Office Visit 12/26/2018 2:04p [facility] Catarino Perez, I21.4 Non- St elevation Of Quality Technician [facility] Lala, FACC, (Nstemi) FSCAI myocardial infarction Office Visit 12/26/2018 10:30a [facility] Autumn I21.4 Non-St elevation Assoc,raul Foote M.D. (Nstemi) Hospitalists myocardial infarction T62.91xA Toxic effect of unsp noxious sub eaten as food, acc, init D64.9 Anemia, unspecified N17.9 Acute kidney failure, unspecified E11.9 Type 2 diabetes mellitus without complications J45.909 Unspecified asthma, uncomplicated Office Visit 12/25/2018 9:27a [facility] Eva Gaines, I21.4 Non- St elevation Of [facility] M.DBlayne (Nstemi) myocardial infarction I25.10 Athscl heart disease of blackfeet coronary artery w/o ang pctrs I25.2 Old myocardial infarction Z98.61 Coronary angioplasty status Office Visit 12/25/2018 10:29a [facility] Angela I21.4 Non-St elevation Assoc,pc TAMEKA Roberts (Nstemi) Hospitalists myocardial infarction N17.9 Acute kidney failure, unspecified R10.11 Right upper quadrant pain E11.9 Type 2 diabetes mellitus without complications J45.909 Unspecified asthma, uncomplicated G47.33 Obstructive sleep apnea (adult) (pediatric) Office Visit 11/20/2018 3:00p [facility] Adi Taylor I10 Essential (primary) Of Kourtney King M.D. hypertension I25.10 Athscl heart disease of blackfeet coronary artery w/o ang pctrs Office Visit 11/13/2018 4:20p [facility] Internal Ag Vibha, E11.9 Type 2 diabetes Medicine - C[facility] SOCIAL MEDIA CAMPAIGN MANAGER mellitus without complications M25.561 Pain in right knee Assessments Date Code Description Provider 05/09/2019 R10.11 Right upper quadrant pain Linette Garcia M.D. 05/09/2019 R19.7 Diarrhea, unspecified Linette Garcia M.D. 04/18/2019 G47.33 Obstructive sleep apnea (adult) Jaye Cohen DNP, RN, (pediatric) [facility] [place] 04/18/2019 Z68.41 Body mass index (BMI) 40.0-44.9, Jaye Cohen DNP, RN, adult [facility] [place] 03/07/2019 E11.9 Type 2 diabetes mellitus without Linette Garcia M.D. complications 03/07/2019 M25.512 Pain in left shoulder Linette Garcia M.D. 02/17/2019 B35.3 Tinea pedis Eric Correa MD 02/17/2019 I78.8 Other diseases of capillaries Eric Correa MD 02/17/2019 L82.1 Other seborrheic keratosis Eric Correa MD 02/17/2019 D22.9 Melanocytic nevi, unspecified Eric Correa MD 02/17/2019 Z08 Encounter for follow-up examination Eric Correa MD after completed treatmen 02/17/2019 Z85.828 Personal history of other malignant Eirc Correa MD neoplasm of skin 01/07/2019 R07.9 Chest pain, unspecified Adi King M.D. 01/07/2019 I21.4 Non-St elevation (Nstemi) myocardial Adi King M.D. infarction 01/07/2019 I25.10 Atherosclerotic heart disease of Adi King M.D. blackfeet coronary artery with 12/27/2018 I21.4 Non-St elevation (Nstemi) myocardial Catarino Perez M.D., FACC, infarction FSCAI 12/27/2018 I21.4 Non-St elevation (Nstemi) myocardial Cedric Riggs MD infarction 12/27/2018 R07.9 Chest pain, unspecified Catarino Perez M.D., [facility], FSCAI 12/26/2018 I21.4 Non-St elevation (Nstemi) myocardial Catarino Perez M.D., [facility], infarction FSCAI 12/26/2018 I21.4 Non-St elevation (Nstemi) myocardial Autumn Foote M.D. infarction 12/26/2018 I21.4 Non-St elevation (Nstemi) myocardial Catarino Perez M.D., [facility], [facility] 12/26/2018 T62.91xA Toxic effect of unsp noxious sub Autumn Foote M.D. eaten as food, acc, init 12/26/2018 I21.4 Non-St elevation (Nstemi) myocardial Catarino Perez M.D., [facility], infarction [facility] 12/26/2018 D64.9 Anemia, unspecified Autumn Foote M.D. 12/26/2018 I25.10 Atherosclerotic heart disease of [facility] [place] coronary artery with FSCAI 12/26/2018 N17.9 Acute kidney failure, unspecified Autumn Foote M.D. 12/26/2018 E11.9 Type 2 diabetes mellitus without Autumn Foote M.D. complications 12/26/2018 J45.909 Unspecified asthma, uncomplicated Autumn Foote M.D. 12/25/2018 I21.4 Non-St elevation (Nstemi) myocardial Angela Roberts PA-C infarction 12/25/2018 I21.4 Non-St elevation (Nstemi) myocardial Eva Gaines M.D. infarction 12/25/2018 N17.9 Acute kidney failure, unspecified Angela Roberts PA-C 12/25/2018 I25.10 Atherosclerotic heart disease of Eva Gaines M.D. black[place] coronary artery with 12/25/2018 R10.11 Right upper quadrant pain Angela Roberts PA-C 12/25/2018 I25.2 Old myocardial infarction Eva Gaines M.D. 12/25/2018 E11.9 Type 2 diabetes mellitus without Angela Roberts PA-C complications 12/25/2018 Z98.61 Coronary angioplasty status Eva Gaines M.D. 12/25/2018 J45.909 Unspecified asthma, uncomplicated Angela Roberts PA-C 12/25/2018 G47.33 Obstructive sleep apnea (adult) Angela Roberts PA-C (pediatric) 11/20/2018 I10 Essential (primary) hypertension Adi King M.D. 11/20/2018 I25.10 Atherosclerotic heart disease of Adi King M.D. blackfeet coronary artery with 11/13/2018 E11.9 Type 2 diabetes mellitus without Ag Dunne NP complications 11/13/2018 M25.561 Pain in right knee Agalyssa Dunne NP Plan of Treatment Future Appointment(s):04/19/2020 11:15 am - Jaye Cohen DNP, RN, NEWSPAPER CLIPPER- at [facility]09/04/2019 1:20 pm - Linette Garcia M.D. at [facility] Internal Medicine - Ccmob05/09/2019 - Linette Garcia M.D.R10.11 Right upper quadrant painNew Labs:Comp Metabolic Panel, Ordered: 05/09/19CBC Auto Diff, Ordered: 05/09/19Lipase, Ordered: 05/09/19Comments:Stay on [id number] Diarrhea, unspecifiedNew Labs:Stool Culture, Ordered: C Difficile PCR, Ordered: 05/09/19Comments:Consider going off metforminBRAT Diet: bananas, rice, apple sauce and toast. You also need lots of clear liquids (juice, broth, fransisco estiven, water). Avoid milk products until symptoms have resolved Low fat dietStool tests if going off the metformin makes no difference Functional Status Description No Information Available Mental Status Description No Information Available Referrals Description No Information Available
--- OUTSIDE RECORDS SUMMARY | 2019-06-22 11:42 | XMS REPORT | Continuity of Care Document ---
:1955 External Reference #:[id number] Author Name Linette Garcia M.D. (transmitted by agent of provider Shantal Alexander) Address [address], [place] [address] Care Team Providers Name Role Phone Mag Love MD - Internal Care Team Information Manager Business Planning [phone] Medicine Pool Dalton MD - Family Care Team Information Manager Business Planning [phone] Medicine Adi King MD - Cardiovascular Care Team Information Manager Business Planning Disease Problems Active Problems Provider Date Coronary [...] Use Denies Drug Use Smoking Status Reviewed: 06/03/19 Patient has never smoked Exercise Type/Frequency Exercises [...] Tablets daily Nitrostat place one tablet 25tabs [facility] 07/14/2014 0.4mg under the tongue Lala Garcia [...] 1 tablet once Linette 01/26/2010 81mg daily Jose MBlayneDBlayne Tablets DR Carmella Chatman inhale one spray 8.6units [facility] 01/25/2010 into each nostril Lala Garcia 32mcg/Act twice daily. Suspension Simvastatin take one tablet 30tabs Linette 01/25/2010 80mg by mouth at Lala Garcia Tablets bedtime Lisinopril take 1 tablet by 90tabs [facility] 01/25/2010 5mg mouth every day Lala Garcia Tablets Advair Diskus inhale 1 puff by 60units [facility] 01/25/2010 mouth two times Haris GarciaDBlayne 500-50mcg/Dose daily Aerosol Fluoxetine HCL Take 1 Capsule By 45caps [facility] 01/25/2010 20mg Mouth On Even Haris GarciaDBlayne Capsules Days And Take 2 Capsules By Mouth On Odd Days Pantoprazole Sodium Take One Tablet 60tabs Linette 01/25/2010 By Mouth Twice A Jose M.DBlayne 40mg Tablets DR Day History Medications Plavix 1 by mouth every 90tabs [facility], 12/30/2018 - 75mg Tablets day M.D. 01/06/2019 Immunizations CPT Code Status Date Vaccine Lot # [id number] Given 10/15/2018 Fluzone High Dose 60228 Given 06/09/2017 Influenza Virus Vaccine, Quadrivalent, Split, Preservative Free [id number] Given 06/03/2016 Flu Vaccine NOS Q2037 Given 06/24/2015 Fluvirin Im 3Yrs And Older 24535 Given 01/12/2015 Zoster (Zostavax) [id number] Q2035 Given 06/18/2014 Afluria Vaccine 73815 Given 09/15/2013 Tdap - Tetanus/Diptheria/Acellular Pertussis [id number] Q2037 Given 08/08/2013 Fluvirin Im 3Yrs And Older Vital Signs Date Vital Result Comment 06/03/2019 2:31pm Height 63 inches 5'3" Weight 233.00 lb Heart Rate 70 /min BP Systolic 114 mmHg BP Diastolic 77 mmHg O2 % BldC Oximetry 96 % BMI (Body Mass Index) 41.3 kg/m2 05/09/2019 12:53pm Height 63 inches 5'3" Weight 227.38 lb Heart Rate 77 /min BP Systolic Sitting 140 mmHg BP Diastolic Sitting 80 mmHg Body Temperature 97.9 F O2 % BldC Oximetry 95 % BMI (Body Mass Index) 40.3 kg/m2 Results Test Date Facility Test Result H/L Range Note Comp Metabolic 05/09/2019 [facility] Sodium 139 mmol/L Normal 135-[address] [place] [address] [phone] Potassium 4.4 mmol/L Normal 3.5-5.0 Chloride 107 mmol/L Normal 101-111 Co2 Carbon Dioxide 24 mmol/L Normal 22-32 Anion Gap 8 mmol/L Normal 2-11 Glucose 133 mg/dL High 70-100 Blood Urea Nitrogen 24 mg/dL Normal 6-24 Creatinine 1.10 mg/dL High 0.51-0.95 BUN/Creatinine Ratio 21.8 High 8-20 Calcium 9.3 mg/dL Normal 8.6-10.3 Total Protein 6.9 g/dL Normal 6.4-8.9 Albumin 4.2 g/dL Normal 3.2-5.2 Globulin 2.7 g/dL Normal 2-4 Albumin/Globulin Ratio 1.6 Normal 1-3 Total Bilirubin 0.60 mg/dL Normal 0.2-1.0 Alkaline Phosphatase 52 U/L Normal 34-104 Alt 16 U/L Normal 7-52 Ast 13 U/L Normal 13-39 Egfr Non- 49.8 >60 Egfr 60.3 >60 1 CBC Auto 05/09/2019 [facility] White Blood 5.8 10^3/uL Normal 3.5-10.[address] [place] [address] [phone] Red Blood Count 4.14 10^6/uL Normal 3.70-4.87 Hemoglobin 12.8 g/dL Normal 12.0-16.0 Hematocrit 38 % Normal 35-47 Mean Corpuscular Volume 92 fL Normal 80-97 Mean Corpuscular Hemoglobin 31 pg Normal 27-31 Mean Corpuscular HGB Conc 34 g/dL Normal 31-36 Red Cell Distribution Width 13 % Normal 10-15 Platelet Count 195 10^3/uL Normal 150-450 Mean Platelet Volume 8.7 fL Normal 7.4-10.4 Abs Neutrophils 3.4 10^3/uL Normal 1.5-7.7 Abs Lymphocytes 1.4 10^3/uL Normal 1.0-4.8 Abs Monocytes 0.5 10^3/uL Normal 0-0.8 Abs Eosinophils 0.4 10^3/uL Normal 0-0.6 Abs Basophils 0.0 10^3/uL Normal 0-0.2 Abs Nucleated RBC 0.0 10^3/uL Granulocyte % 59.4 % Lymphocyte % 24.8 % Monocyte % 8.5 % Eosinophil % 6.6 % Basophil % 0.7 % Nucleated Red Blood Cells % 0.0 Laboratory 05/09/2019 [facility] Lipase 29 U/L Normal 11.0- 82.0 test finding [address] [place] [address] [phone] Laboratory 03/07/2019 [facility] Hemoglobin 6.1 5-7 test finding A1c Laboratory 01/22/2019 [facility] Cytology SEE RESULT 2 test finding [address] [place] [address] [phone] Influenza A & 12/25/2018 [facility] Influenza A NEGATIVE Negative 3 B Request [address] [place] [address] [phone] Influenza B Molecular NEGATIVE Negative CBC Auto 12/25/2018 [facility] White Blood 9.1 10^3/uL Normal 3.5-10.[address] [place] [address] [phone] Red Blood Count 4.28 10^6/uL Normal 3.70-4.87 [...] Blood Cells % 0 Laboratory test 12/25/2018 [facility] B-Type 42 pg/mL <=[address] [place] [address] Peptide BNP [phone] Comp Metabolic 12/25/2018 [facility] Sodium 135 Normal 135- [address] mmol/[place] [address] [phone] Potassium 5.0 mmol/L Normal 3.5-5.0 Chloride 104 [...] Egfr Non- 42.8 >60 Egfr 51.7 >60 4 Laboratory test 12/25/2018 [facility] C Reactive 48.62 mg/L High <8.[address] [place] [address] [phone] Troponin-I (TnI) 0.57 ng/mL Critical high <0.04 5 Lactic Acid 1.8 mmol/L Normal 0.5-2.0 6 1 Because ethnic data is not always readily [...] 15-29 5 Kidney failure <15 (or dialysis) 2 SEE RESULT BELOW Name: XIOMARAADDI M : [address]: Roseann Castellano MD Acct: [id number] Unit: [id number] AGE: 63 Location: [facility] Re01/22/19 SEX: F Status: REG REF SPEC: [id number] SAIRA: 01/22/19-[address]: Roseann Castellano MD REQ: [id number] RECD: 01/23/19-1226 STATUS: DAWN ASCENCIO DR: Linette Garcia MD _ ORDERED: TP IMAGE ANALYS, HPV/Thin Prep COMMENTS: [id number] Negative for Intraepithelial lesion or Malignancy Shift [...] Signed by and Reported on: JESSE Andres(ASCP) [id number] This Pap test was evaluated with the assistance of the Sympara MedicalPrep Test Imaging System. Due to cytologic findings at the human resource officer microscope, comprehensive manual rescreening by a Per Diem Rn may be required. The Pap Smear is [...] years. END OF REPORT DEPARTMENT OF PATHOLOGY, [address] [place] [address] Nicho Osorio M.D. Director [facility] # [id number] 3 Artificial Marble Worker: [id number] 4 Because ethnic data is not always readily [...] 15-29 5 Kidney failure <15 (or dialysis) 5 Result TnIDx:0.57 Called to [id number] at: 11:08:53 by:[id number] Read back by: [id number] Troponin-I testing on Plasma Separator Tubes (PST) has a known false positive rate of 0.20-0.40%. All positive troponins reflex immediate secondary confirmatory testing. 6 [facility] Severe Sepsis and Septic Shock Management Bundle Measure requires all lactic acids initially measuring >2.0 mmol/L be repeated. Procedures Date Code Description Status 12/27/2018 36725 Treadmill Interp/Report Only Completed 12/27/2018 20737 Stress Test Supervsn W/Out I/R Completed 12/27/2018 64111 EKG, Interpretation Only Completed 12/26/2018 19234 Left Heart Cath. Incl S/I Coronaries, Angio S/I V Gram Completed If Done 12/26/2018 45607 EKG, Interpretation Only Completed 12/26/2018 34356 EKG, Interpretation Only Completed 07/20/2018 [id number] Diabetic Retinal Eye Exam Completed 01/17/2018 [id number] Mammogram Completed 03/01/2016 [id number] Diabetic Retinal Eye Exam Completed 11/18/2014 [id number] Mammogram Completed 11/09/2014 [id number] Mammogram Completed 11/03/2014 [id number] Diabetic Retinal Eye Exam Completed 09/15/2013 [id number] Diabetic Retinal Eye Exam Completed 03/29/2011 [id number] Mammogram Completed 2010 [id number] Colonoscopy Completed 09/23/2009 [id number] Bone Mineral Density Test Completed 07/31/2008 [id number] Mammogram Completed 07/26/2005 [id number] Mammogram Completed 01/17/2005 [id number] Colonoscopy Completed 01/02/2005 [id number] Mammogram Completed 12/08/2004 [id number] Mammogram Completed Medical Devices Description No Information Available Encounters Type Date Location Provider Dx Diagnosis Office Visit 05/09/2019 [facility] Internal Linette Garcia, R10.11 Right upper 1:00p Kemal Monahan M.D. quadrant pain R19.7 Diarrhea, unspecified Office Visit 04/18/2019 [facility] G47.33 Obstructive sleep 11:00a [facility] Cohen, RN, apnea (adult) [facility] BALANCE WEIGHER-BC (pediatric) Z68.41 Body mass index (BMI) 40.0-44.9, adult Office Visit 03/07/2019 10:20a [facility] Internal Linette E11.9 Type 2 diabetes Kemal Garcia M.D. mellitus without [facility] complications M25.512 Pain in left shoulder Office Visit 02/17/2019 9:20a [facility] Dermatology Eric Correa MD B35.3 Tinea pedis I78.8 Other diseases of capillaries L82.1 Other seborrheic keratosis D22.9 Melanocytic nevi, unspecified Z08 Encntr for follow-up exam after trtmt for malignant neoplasm Z85.828 Personal history of other malignant neoplasm of skin Office Visit 01/07/2019 2:15p [facility] Adi Taylor R07.9 Chest pain, Of Research Epidemiologist AT [facility] Lala King unspecified I21.4 Non-St elevation (Nstemi) myocardial infarction I25.10 Athscl heart disease of [place] coronary artery w/o ang pctrs Office Visit 12/27/2018 10:30a [facility] Cedric Riggs MD I21.4 Non-St elevation Assoc,pc (Nstemi) Hospitalists myocardial infarction Office Visit 12/26/2018 2:04p [facility] Catarino Perez, I21.4 Non- St elevation Of Research Epidemiologist AT [facility] M.D., [facility], (Nstemi) FSCAI myocardial infarction Office Visit 12/26/2018 10:30a [facility] Autumn I21.4 Non-St elevation Assoc,pc Lala Foote (Nstemi) Hospitalists myocardial infarction T62.91xA Toxic effect of unsp noxious sub eaten as food, acc, init D64.9 Anemia, unspecified N17.9 Acute kidney failure, unspecified E11.9 Type 2 diabetes mellitus without complications J45.909 Unspecified asthma, uncomplicated Office Visit 12/25/2018 9:27a [facility] Eva Gaines, I21.4 Non- St elevation Of Research Epidemiologist M.D. (Nstemi) myocardial infarction I25.10 Athscl heart disease of [place] coronary artery w/o ang pctrs I25.2 Old myocardial infarction Z98.61 Coronary angioplasty status Office Visit 12/25/2018 10:29a [facility] Angela I21.4 Non-St elevation Assoc,pc TAMEKA Roberts (Nstemi) Hospitalists myocardial infarction N17.9 Acute kidney failure, unspecified R10.11 Right upper quadrant pain E11.9 Type 2 diabetes mellitus without complications J45.909 Unspecified asthma, uncomplicated G47.33 Obstructive sleep apnea (adult) (pediatric) Assessments Date Code Description Provider 06/03/2019 R19.7 Diarrhea, unspecified Linette Garcia M.D. 06/03/2019 E11.9 Type 2 diabetes mellitus without Linette Garcia M.D. complications 05/09/2019 R10.11 Right upper quadrant pain Linette Garcia M.D. 05/09/2019 R19.7 Diarrhea, unspecified Linette Garcia M.D. 04/18/2019 G47.33 Obstructive sleep apnea (adult) Jaye Cohen DNP, RN, (pediatric) [facility] 04/18/2019 Z68.41 Body mass index (BMI) 40.0-44.9, Jaye Cohen DNP, RN, adult [facility] 03/07/2019 E11.9 Type 2 diabetes mellitus without [...] 02/17/2019 Z85.828 Personal history of other malignant Eric Correa MD neoplasm of skin 01/07/2019 R07.9 Chest pain, unspecified Adi King M.D. 01/07/2019 I21.4 Non-St elevation (Nstemi) myocardial Adi King M.D. infarction 01/07/2019 I25.10 Atherosclerotic heart disease of Adi King M.D. [place] coronary artery with 12/27/2018 I21.4 Non-St elevation (Nstemi) myocardial Catarino Perez M.D., FACC, infarction [facility] 12/27/2018 I21.4 Non-St elevation (Nstemi) myocardial Cedric Riggs MD infarction 12/27/2018 R07.9 Chest pain, unspecified Catarino Perez M.D., FACC, FSCAI 12/26/2018 I21.4 Non-St elevation (Nstemi) myocardial Catarino Perez M.D., FACC, infarction [facility] 12/26/2018 I21.4 Non-St elevation (Nstemi) myocardial Autumn Foote M.D. infarction 12/26/2018 I21.4 Non-St elevation (Nstemi) myocardial Catarino Perez M.D., FACC, infarction [facility] 12/26/2018 T62.91xA Toxic effect of unsp noxious sub Autumn Foote M.D. eaten as food, acc, init 12/26/2018 I21.4 Non-St elevation (Nstemi) myocardial Catarino Perez M.D., [facility], infarction [facility] 12/26/2018 D64.9 Anemia, unspecified Autumn Foote M.D. 12/26/2018 I25.10 Atherosclerotic heart disease of Catarino Perez M.D., [facility], [place] coronary artery with FSCAI 12/26/2018 N17.9 Acute [...] Atherosclerotic heart disease of Eva Gaines M.D. [place] coronary artery with 12/25/2018 R10.11 Right upper quadrant pain Angela Roberts PA-C 12/25/2018 I25.2 Old myocardial infarction Eva Gaines M.D. 12/25/2018 E11.9 Type 2 diabetes mellitus without Angela Roberts PA-C complications 12/25/2018 Z98.61 Coronary angioplasty status Eva Gaines M.D. 12/25/2018 J45.909 Unspecified asthma, uncomplicated Angela Roberts PA-C 12/25/2018 G47.33 Obstructive sleep apnea (adult) Angela Roberts PA-C (pediatric) Plan of Treatment Future Appointment(s):08/29/2019 10:20 am - Linette Garcia M.D. at [facility] Internal Medicine - [facility]12/23/2019 1:20 pm - Linette Garcia M.D. at [facility] Internal Medicine - [facility]04/19/2020 11:15 am - Jaye Cohen DNP, RN, BALANCE WEIGHER- at [facility]06/03/2019 - Linette Garcia M.D.R19.7 Diarrhea, unspecifiedComments:OK to try going back on metformin If the diarrhea/pain comes back - do stool culturesIf further problems, would do GI referral - Dr. Al up:see me for diabetes in August, PE in December 2019E11.9 Type 2 diabetes mellitus without complicationsComments:Go back on Trulicity Functional Status Description No Information Available Mental Status Description No Information Available Referrals Description No Information Available
--- NOTE | 2019-06-22 11:56 | UC ---
Respiratory Complaint HPI - HPI Summary HPI Summary: 2 days of sever R sided cheek pain/tooth pain. reports hx of 5 sinus surgeries and 15 yrs. of Sinus issues. Denies fever, simmons. - History of Current Complaint Chief Complaint: UCRespiratory Stated Complaint: SINUS COMPLAINT Time Seen by Provider: 06/22/19 11:51 Hx Obtained From: Patient ?: No Pain Intensity: 7 Pain Scale Used: 0-10 Numeric - Allergies/Home Medications Allergies/Adverse Reactions: Allergies Allergy/AdvReac Type Severity Reaction Status Date / Time peanut Allergy Severe Swelling Verified 06/22/19 11:55 Of Face,Lips,& Throat nut - unspecified Allergy Intermediate Swelling Verified 06/22/19 11:55 Of Face,Lips,& Throat shellfish derived Allergy Unknown Verified 06/22/19 11:55 Reaction Details Sulfa (Sulfonamide Allergy Hives Verified 06/22/19 11:55 Antibiotics) amoxicillin [From Augmentin] AdvReac Nausea And Verified 06/22/19 11:55 Vomiting clavulanic acid AdvReac Nausea And Verified 06/22/19 11:55 [From Augmentin] Vomiting moxifloxacin [From Avelox] AdvReac Nausea And Verified 06/22/19 11:55 Vomiting Home Medications: Home Medications Aspirin [Aspirin Childrens 81 MG] 81 mg PO DAILY 06/22/19 [History Confirmed 03/05] Montelukast Sodium TAB* [Singulair 10 MG TAB*] 10 mg PO DAILY 06/22/19 [History Confirmed 06/22/19] Pantoprazole TAB * [Protonix TAB*] 40 mg PO DAILY 06/22/19 [History Confirmed ] Simvastatin TAB(NF) [Zocor 20 MG (NF)] 80 mg PO BEDTIME 06/22/19 [History Confirmed 06/22/19] PMH/Surg Hx/FS Hx/Imm Hx - Additional Past Medical History Additional PMH: chronic sinus issues. Previously Healthy: Yes Cardiovascular History: Cardiac Disease, Hypertension, Myocardial Infarction Other History Of: Anticoagulant Therapy - plavix history, not currently taking - Surgical History Surgical History: Yes Surgery Procedure, Year, and Place: 04/2000 (left) carpal tunnel. 02/2001 ( right) carpal tunnel. 12/2002 hysterectomy fibroid tumor. Stent placement x 4 and angioplasty. 5 sinus surgeries - Family History Known Family History: Positive: Diabetes - Social History Alcohol Use: None Substance Use Type: None Smoking Status (MU): Never Smoked Tobacco - Immunization History Most Recent Influenza Vaccination: unk Most Recent Tetanus Shot: within 10 years Most Recent Pneumonia Vaccination: patient states had in pass Review of Systems All Other Systems Reviewed And Are Negative: Yes Constitutional: Negative: Fever, Chills, Fatigue Skin: Negative: Rash ENT: Positive: Ear Ache - R side, Sinus Congestion, Sinus Pain/Tenderness. Negative: Sore Throat Respiratory: Positive: Negative Cardiovascular: Positive: Negative Neurological: Negative: Headache Physical Exam Triage Information Reviewed: Yes Appearance: Well-Appearing Vital Signs: Initial Vital Signs Temp 97.9 F 06/22/19 11:48 Pulse 83 06/22/19 11:48 Resp 16 06/22/19 11:48 Pulse Ox 98 06/22/19 11:48 Vital Signs Reviewed: Yes Eyes: Positive: Conjunctiva Clear ENT: Positive: Pharynx normal, TMs normal, Sinus tenderness - R maxillary, Uvula midline Dental: Positive: Percussion Tenderness @ - R upper side Neck exam: Normal Respiratory Exam: Normal Cardiovascular Exam: Normal Neurological: Positive: Alert Skin: Negative: Rashes Respiratory Course/Dx - Course Course Of Treatment: 2 days of R sided maxillary pain but afebrile. Has extensive hx of sinus surgeries and chronic interventions. On exam there was significant tenderness at R upper tooth and R maxillary. Vitals are good but she has hx of high bp, she ;will disc w/ her pcp. have asked her to go to pcp if not improving. - Differential Dx/Diagnosis Provider Diagnosis: Bacterial sinusitis Discharge ED - Sign-Out/Discharge Documenting (check all that apply): Patient Departure All imaging exams completed and their final reports reviewed: No Studies - Discharge Plan Condition: Good Disposition: HOME Prescriptions: DOXYcycline CAP(*) [DOXYcycline 100MG CAP(*)] 100 mg PO BID 10 Days #20 cap Patient Education Materials: Sinusitis (ED) Referrals: Linette Garcia MD [Primary Care Provider] - Additional Instructions: I reviewed your allergies. I will treat you for presumed bacterial sinusitis but if not improving please follow up with ENT given your history. - Billing Disposition and Condition Condition: GOOD Disposition: Home
== END 2019-06-22 12:20 | disposition home or self-care (01) ==
LOC: UCEAST 11:38
DX: J32.8 Other chronic sinusitis (principal); B96.89 Other specified bacterial agents as the cause of diseases classified elsewhere; I25.2 Old myocardial infarction; I10 Essential (primary) hypertension; Z79.82 Long term (current) use of aspirin; Z91.018 Allergy to other foods; Z88.1 Allergy status to other antibiotic agents; Z88.0 Allergy status to penicillin; Z91.010 Allergy to peanuts; Z88.2 Allergy status to sulfonamides; Z95.5 Presence of coronary angioplasty implant and graft; Z91.013 Allergy to seafood
CPT/HCPCS: 99212; G0463

== ENCOUNTER 2022-01-10 09:17 | Inpatient (IN) ==
[2022-01-10] MEDS ORDERED: Midazolam 5 mg/5 ml VIAL 1 mg/ml 5 ml VIAL (5 mg) ONE (10:19)
[2022-01-10] MEDS ORDERED: fentaNYL 100 mcg/2 ml 50 MCG/ML VIAL ONE (10:19)
[2022-01-10] MEDS ORDERED: VERAPAMIL 2.5 MG/ML 2 ML VIAL ** 5 mg/2 ml ONE (10:19)
[2022-01-10] MEDS ORDERED: Heparin 1,000 UNIT/ML 10 ml (10,000 UNITS) CATHLAB/DIALYSIS ONE (10:19)
[2022-01-10] MEDS ORDERED: Heparin 2 UNITS/ML 1000 mls 2,000 ML IV ONE (10:20)
[2022-01-10] MEDS ORDERED: nitroGLYCERIN DRIP 25,000 MCG/250 ML BTL ONE (10:20)
[2022-01-10] MEDS ORDERED: Lidocaine 1% MPF 5 ML VIAL ONE ×2 (10:21→10:36)
[2022-01-10] MEDS ORDERED: Iodixanol 320 (CONTRAST) 100 ML SDV ONE ×2 (10:21→11:53)
[2022-01-10] MEDS ORDERED: Bivalirudin 250 MG VIAL ONE (11:18)
[2022-01-10] MEDS ORDERED: NS 0.9% 1000 ml BAG 1,000 ML IV SCH (12:30)
[2022-01-11 05:02] LABS: ABS Eosinophils 0.4 10^3/ul (0-0.6); ABS Lymphocytes 1.2 10^3/ul (1.0-4.8); ABS Monocytes 0.5 10^3/ul (0-0.8); ABS Neutrophils 2.8 10^3/ul (1.5-7.7); Eosinophil % 8.4 %; Hematocrit 30 % (35-47); Hemoglobin 10.1 g/dL (12.0-16.0); Lymphocyte % 24.5 %; Mean Corpuscular HGB Conc 34 g/dL (31-36); Mean Corpuscular Hemoglobin 30 pg (27-31); Mean Corpuscular Volume 89 fL (80-97); Mean Platelet Volume 8.7 fL (7.4-10.4); Nucleated Red Blood Cells % 0.1; Platelet Count 142 10^3/uL (150-450); Red Blood Count 3.41 10^6 /uL (3.70-4.87); Red Cell Distribution Width 13 % (10-15)
[2022-01-11 05:27] LABS: Calcium 8.9 mg/dL (8.6-10.3); Potassium 4.5 mmol/L (3.5-5.0); eGFR CKD-EPI 56.9 (>60)
[2022-01-11] MEDS ORDERED: Levalbuterol HFA INHALER MDI INH PRN (09:17)
[2022-01-11 09:58] LABS: Ferritin 10.3 ng/mL (11-307)
[2022-01-11] MEDS ORDERED: Mometasone/Formoter 200/5 MDI INH SCH (10:30)
[2022-01-11 12:21] LABS: Folate 12.56 ng/mL (5.90-24.80)
[2022-01-11 13:02] VITALS: BP 157/80
[2022-01-11] MEDS ORDERED: CMCS:Simvastatin 20 mg TAB (NF) PO SCH (21:00)
== END 2022-01-11 13:03 | disposition home or self-care (01) | DRG 175 ==
LOC: CHICATH 09:17 → ICU 12:54
PROVIDERS: ADMIT Specialist; ATTEND Specialist

== ENCOUNTER 2023-02-01 07:11 | Inpatient (IN) ==
[2023-02-01] MEDS ORDERED: Pantoprazole VIAL 40 MG VIAL IV ONE (07:29)
[2023-02-01 07:51] LABS: Hematocrit 26.3 % (35-45); Hemoglobin 8.5 g/dL (11.5-14.3); Mean Corpuscular Hemoglobin 26.9 pg (27-33); Mean Corpuscular Hgb Conc 32.4 g/dL (31-36); Mean Corpuscular Volume 82.8 fL (80-97); Platelet Count 258 10^3/uL (150-450); Red Blood Count 3.17 10^6/uL (3.63-4.92); Red Cell Distribution Width 15.9 % (12-17)
[2023-02-01 07:52] LABS: ABS Basophils 0.1 10^3/uL (0.0-0.1); ABS Eosinophils 4.6 10^3/uL (0.0-0.5); ABS Lymphocytes 1.7 10^3/uL (1.0-4.8); ABS Monocytes 0.7 10^3/uL (0.0-0.9); ABS Neutrophils 4.8 10^3/uL (1.5-7.6); Eosinophil % 38.5 %
[2023-02-01 07:58] LABS: INR 1.15 (0.88-1.18)
[2023-02-01 08:44] LABS: Albumin/Globulin Ratio 0.8 (1-3); C Reactive Protein 70.13 mg/L (<8.01); Calcium 8.6 mg/dL (8.6-10.3); Creatinine, Serum 1.15 mg/dL (0.51-0.95); Globulin 3.9 g/dL (2-4); Potassium 4.9 mmol/L (3.5-5.0); Total Bilirubin 0.4 mg/dL (0.2-1.0); Total Protein 6.9 g/dL (6.4-8.9); eGFR CKD-EPI 51.6 (>60)
[2023-02-01] MEDS ORDERED: Iodixanol (CONTRAST) 320 MG/ML 100 ML SDV IV ONE (08:54)
[2023-02-01] MEDS ORDERED: ceFAZolin 2 GM in NS PREMIX 2 GM/100 ML BAG IVPB ONE (10:01)
[2023-02-01] MEDS ORDERED: metroNIDAZOLE IV 500 MG/100ML 500 MG/100 ML BAG IVPB ONE (10:01)
[2023-02-01] MEDS ORDERED: ceFAZolin 2 GM PREMIX 2 GM/50 ML BAG IV ONE (11:15)
[2023-02-01 13:34] LABS: Magnesium 1.3 mg/dL (1.9-2.7)
[2023-02-01] MEDS ORDERED: Magnesium Sulf 4 GM/100 ML IV 4,000 MG/100 ML BAG IVPB ONE (13:58)
[2023-02-01] MEDS ORDERED: Dextrose 50% Syringe 50 ml 25 GM/50 ML SYRINGE IV PUSH PRN (14:02)
[2023-02-01] MEDS ORDERED: fentaNYL 100 mcg/2 ml 50 MCG/ML VIAL ONE (14:11)
[2023-02-01] MEDS ORDERED: Midazolam 10 mg/10 ml VIAL 1 mg/ml 10 ml VIAL (10 mg) ONE (14:11)
[2023-02-01 14:53] LABS: Vitamin D Total 25(OH) 14.1 ng/mL (20-50)
[2023-02-01] MEDS: Nystatin SUSPENSION 100,000 UNITS/ML UDC PO SCH (16:21)
[2023-02-01] MEDS ORDERED: fentaNYL 100 mcg/2 ml 50 MCG/ML VIAL IV SLOW PU ONE (16:23)
[2023-02-01] MEDS ORDERED: Midazolam 10 mg/10 ml VIAL 1 mg/ml 10 ml VIAL (10 mg) IV SLOW PU ONE (16:23)
[2023-02-01] MEDS ORDERED: cefTRIAXone 1 gm/50 mL D5W 1 GM/50 ML BAG IV SCH (17:00)
[2023-02-01 17:08] LABS: Hematocrit 24.1 % (35-45); Hemoglobin 7.9 g/dL (11.5-14.3)
[2023-02-01 17:46] LABS: Ferritin 38.7 ng/mL (11-307)
[2023-02-01 17:50] LABS: Folate 8.12 ng/mL (5.90-24.80)
[2023-02-01] MEDS: Cholecalciferol (VIT D3) 1,000 unit TAB PO SCH (18:02)
[2023-02-01] MEDS: NS 0.9% 1000 ml BAG 1,000 ML IV SCH (18:24)
[2023-02-01] MEDS ORDERED: ceFAZolin 2 GM PREMIX 2 GM/50 ML BAG IVPB SCH (19:30)
[2023-02-01] MEDS: Pantoprazole VIAL 40 MG VIAL IV SCH (21:37)
[2023-02-02] MEDS: metroNIDAZOLE IV 500 MG/100ML 500 MG/100 ML BAG IVPB SCH ×2 (00:02→09:10)
[2023-02-02 00:39] LABS: Hematocrit 23.5 % (35-45); Hemoglobin 7.8 g/dL (11.5-14.3)
[2023-02-02] MEDS: NS 0.9% 1000 ml BAG 1,000 ML IV SCH (04:31)
[2023-02-02 08:47] LABS: Hematocrit 24.2 % (35-45); Hemoglobin 8.1 g/dL (11.5-14.3); Mean Corpuscular Hemoglobin 27.2 pg (27-33); Mean Corpuscular Hgb Conc 33.4 g/dL (31-36); Mean Corpuscular Volume 81.4 fL (80-97); Mean Platelet Volume 6.9 fL (7.5-11.2); Platelet Count 256 10^3/uL (150-450); Red Blood Count 2.98 10^6/uL (3.63-4.92); Red Cell Distribution Width 15.8 % (12-17); White Blood Count 9.1 10^3/uL (3.8-11.8)
[2023-02-02 08:54] LABS: ABS Basophils 0.1 10^3/uL (0.0-0.1); ABS Lymphocytes 1.2 10^3/uL (1.0-4.8); ABS Monocytes 0.5 10^3/uL (0.0-0.9); ABS Neutrophils 3.3 10^3/uL (1.5-7.6); Eosinophil % 43.7 %; Lymphocyte % 12.7 %
[2023-02-02] MEDS: Nystatin SUSPENSION 100,000 UNITS/ML UDC PO SCH (09:09)
[2023-02-02] MEDS: Cholecalciferol (VIT D3) 1,000 unit TAB PO SCH (09:10)
[2023-02-02] MEDS: Pantoprazole VIAL 40 MG VIAL IV SCH (09:11)
[2023-02-02 09:37] LABS: Calcium 8.3 mg/dL (8.6-10.3); Creatinine, Serum 1.09 mg/dL (0.51-0.95); Magnesium 1.9 mg/dL (1.9-2.7); Potassium 4.5 mmol/L (3.5-5.0)
[2023-02-02 14:42] VITALS: BP 129/54
== END 2023-02-02 15:30 | disposition home or self-care (01) | DRG 244 ==
LOC: ED 07:11 → SUATTDRO 10:15 → EDHOLD 10:15 → MEDTELE 12:19
PROVIDERS: ADMIT Internal Medicine; ATTEND Student in an Organized Health Care Education/Training Program